=== PATIENT | male | born 1970 | race Caucasian/White ===

== ENCOUNTER 2016-12-13 19:37 | Inpatient (IN) | payer OTHER ==
[~2016-12-13] VITALS: Ht 185.4 cm; Wt 99.7 kg
[~2016-12-13 19:37] MED LIST: IBUP-103 PO; TRAM-10 PO
[2016-12-13] MEDS ORDERED: MULTI-VITAMIN INFUSION INJ 10 ML, THIAMINE HCL INJ 100 MG, FoLIC ACID INJ 1 MG in SODIU... IV ONE ×2 (20:30→23:00)
[2016-12-13] MEDS ORDERED: OPTIRAY 320 IV PRN (20:30)
[2016-12-13] MEDS ORDERED: PANTOprazole INJ 80 MG in DEXTROSE 5% 100ML 100 ML IV SCH (20:30)
--- NOTE | 2016-12-13 20:34 | EMERGENCY ROOM VISIT NOTE ---
History Report prepared by Maged: David Pastrana Under the Supervision of: Dr. Juan Alberto West M.D. First contact with patient: 20:10 Chief Complaint: ILLNESS Stated Complaint: INTERNAL BLEEDING,DIZZINESS,HEADACHE History of Present Illness The patient is a 46 year old male who presents to the Emergency Room with complaints of intermittent rectal bleeding beginning over 10 years ago. He notes he had a "bowel backup" in the and has been having bowel problems over the years since then. He indicates that the bleeding was worse today and notes bright red stool that fills the toilet. He notes he is a heavy drinker and consumed alcohol this morning. The patient admits to taking Percocet occasionally, 1 puff of marijuana per day, and Aleve for sciatica the last few months. He feels dizzy and warm, and reports having right groin pain especially in the morning. He also notes getting palpitations at times. He denies having any rash, and does not have a family history of bleeding disorders. Source of History: patient Onset: over 10 years ago Position: other (rectum) Quality: other (rectal bleeding) Timing: intermittent Associated Symptoms: No rash Note: The patient notes feeling dizzy, warm, and has right groin pain. He also notes occasional palpitations. Review of Systems See HPI for pertinent positives & negatives. A total of 10 systems reviewed and were otherwise negative. Past Medical & Surgical Medical Problems: (1) Anxiety State Nos (2) GI bleed (3) Hypertension Nos (4) Lumbago (5) Tobacco Use Disorder Family History No pertinent family history stated. Social History Smoking Status: Current Every Day Smoker Alcohol Use: occasionally Drug Use: marijuana Marital Status: single Housing Status: lives with family Occupation Status: employed Current/Historical Medications Scheduled PRN Ibuprofen Tab (Advil), 200 MG PO Q6 PRN for Pain Allergies Coded Allergies: Codeine (Unverified Allergy, Unknown, SOB, HOT FACE, HIVES, 09/01/16) Erythromycin (Unverified Adverse Reaction, Mild, STOMACH CRAMPS, 09/01/16) Physical Exam Vital Signs Date Time Temp Pulse Resp B/P Pulse Ox O2 Delivery O2 Flow Rate FiO2 12/13/16 21:54 76 18 145/104 98 Room Air 12/13/16 19:40 36.5 105 18 159/110 99 Room Air Physical Exam GENERAL: Patient is mildly intoxicated, anxious appearing and in no acute distress. HEENT: No acute trauma, normocephalic atraumatic, mucous membranes moist, no nasal congestion, no scleral icterus. Injected conjunctiva. NECK: No stridor, no adenopathy, no meningismus, trachea is midline. LUNGS: No dyspnea. Clear to auscultation and equal bilaterally. No wheeze, no rhonchi. HEART: Regular rate and rhythm. No murmurs, rubs, gallops appreciated. ABDOMEN: Soft; vague right suprapubic tenderness to palpation; bowel sounds positive, no masses appreciated, no peritonitis. BACK: No midline tenderness, no CVA tenderness EXTREMITIES: Normal motion all extremities, no cyanosis, no edema. NEUROLOGIC: Alert and oriented, no acute motor or sensory deficits, no focal weakness, cranial nerves grossly intact. SKIN: No rash, no jaundice, no diaphoresis. RECTAL: Bloody stool in rectal vault; normal testicles without swelling or tenderness; no mass appreciated. Medical Decision & Procedures ER Provider Diagnostic Interpretation: CT results are stated below per my interpretation and the radiologist's interpretation. CT SCAN OF THE ABDOMEN AND PELVIS WITH IV CONTRAST FINDINGS: Lung bases: The heart is normal in size and without pericardial effusion. The lung bases are clear. There is a small hiatal hernia. Liver: The contrast-enhanced liver is mildly enlarged, measuring over 18 cm in length. The liver demonstrates diffusely distended attenuation consistent with hepatic steatosis. Fatty sparing is seen adjacent to the gallbladder fossa. A linear calcification is noted in the right lobe of the liver adjacent the IVC. There is no intrahepatic biliary ductal dilatation. The hepatic veins and portal veins are patent. Gallbladder: Contracted. Spleen: Normal in size and attenuation. Pancreas: Unremarkable. Adrenal glands: Calcifications of the left adrenal gland suggest remote trauma/hemorrhage. A 2.0 cm fat density lesion arises from the right adrenal gland and is typical for a myelolipoma. Kidneys: The contrast enhanced kidneys are normal in size and without hydronephrosis. The kidneys enhance symmetrically. There is cortical irregularity identified in the right kidney, likely worsening scarring. No definite mass lesion is seen. There are bilateral renal cysts measuring up to 2.5 cm. Abdominal vasculature: The abdominal aorta is normal in course and caliber noting mild atherosclerotic calcification. Bowel: The small bowel and colon are normal in course and caliber. There is mild colonic diverticulosis without CT evidence of acute diverticulitis. Mild colonic fecal retention is observed. The appendix is well-visualized and normal. Peritoneum: There is no intraperitoneal free air or abdominal ascites. There is a small fat-containing umbilical hernia. Lymphadenopathy: There is a pathologically enlarged retroperitoneal lymph nodes seen in the retrocaval region on image #179. This measures 1.7 x 1.9 cm. Pelvic viscera: The bladder wall appears circumferentially thickened. The prostate and seminal vesicles are normal as visualized. Skeletal structures: No lytic or blastic lesions are seen. Sclerotic changes seen involving the sacroiliac joints. There are bilateral pars defects at L5. No anterolisthesis is seen at L5-S1. IMPRESSION: 1. The bladder wall appears circumferentially thickened. Correlate clinically and with urinalysis. 2. There is a pathologically enlarged retroperitoneal lymph node. This is of indeterminant significance, and although this could be on a reactive basis neoplasm is not excluded. Assessment of the scrotum is recommended as testicular neoplasm can metastasize to the site. 3. There is cortical irregularity of the right kidney without well-defined mass lesion. This likely represents cortical scarring. Given the concurrent finding of retroperitoneal lymphadenopathy urological assessment is recommended. 4. Hepatomegaly and hepatic steatosis. 5. Additional changes as above. Findings were discussed with Dr. eWst in the emergency department at the time of interpretation. Electronically signed by: Bruno Conde M.D. 12/13/2016 9:15 PM Dictated Date/Time: 12/13/2016 9:01 PM Laboratory Results 12/13/16 20:25 Red Blood Count 4.40, Mean Corpuscular Volume 90.5, Mean Corpuscular Hemoglobin 33.4, Mean Corpuscular Hemoglobin Concent 36.9, Mean Platelet Volume 8.6, Neutrophils (%) (Auto) 42.9, Lymphocytes (%) (Auto) 44.0, Monocytes (%) (Auto) 9.6, Eosinophils (%) (Auto) 2.7, Basophils (%) (Auto) 0.4, Neutrophils # (Auto) 1.92, Lymphocytes # (Auto) 1.97, Monocytes # (Auto) 0.43, Eosinophils # (Auto) 0.12, Basophils # (Auto) 0.02 12/14/16 00:34 12/13/16 20:25 Test 12/13/16 20:25 12/13/16 20:35 White Blood Count 4.48 K/uL (4.8-10.8) Red Blood Count 4.40 M/uL (4.7-6.1) Hemoglobin 14.7 g/dL (14.0-18.0) Hematocrit 39.8 % (42-52) Mean Corpuscular Volume 90.5 fL (80-100) Mean Corpuscular Hemoglobin 33.4 pg (25-34) Mean Corpuscular Hemoglobin Concent 36.9 g/dl (32-36) Platelet Count 238 K/uL (130-400) Mean Platelet Volume 8.6 fL (7.4-10.4) Neutrophils (%) (Auto) 42.9 % Lymphocytes (%) (Auto) 44.0 % Monocytes (%) (Auto) 9.6 % Eosinophils (%) (Auto) 2.7 % Basophils (%) (Auto) 0.4 % Neutrophils # (Auto) 1.92 K/uL (1.4-6.5) Lymphocytes # (Auto) 1.97 K/uL (1.2-3.4) Monocytes # (Auto) 0.43 K/uL (0.11-0.59) Eosinophils # (Auto) 0.12 K/uL (0-0.5) Basophils # (Auto) 0.02 K/uL (0-0.2) RDW Standard Deviation 42.8 fL (36.4-46.3) RDW Coefficient of Variation 12.9 % (11.5-14.5) Immature Granulocyte % (Auto) 0.4 % Immature Granulocyte # (Auto) 0.02 K/uL (0.00-0.02) Prothrombin Time 10.0 SECONDS (9.0-12.0) Prothromb Time International Ratio 0.9 (0.9-1.1) Activated Partial Thromboplast Time 26.6 SECONDS (21.0-31.0) Partial Thromboplastin Ratio 1.0 Urine Color YELLOW Urine Appearance CLEAR (CLEAR) Urine pH 5.0 (4.5-7.5) Urine Specific [place] 1.020 (1.000-1.030) Urine Protein 2+ (NEG) Urine Glucose (UA) NEG (NEG) Urine Ketones 1+ (NEG) Urine Occult Blood NEG (NEG) Urine Nitrite NEG (NEG) Urine Bilirubin NEG (NEG) Urine Urobilinogen NEG (NEG) Urine Leukocyte Esterase NEG (NEG) Urine WBC (Auto) 0 /hpf (0-5) Urine RBC (Auto) 0-4 /hpf (0-4) Urine Hyaline Casts (Auto) 0 /lpf (0-5) Urine Epithelial Cells (Auto) 0-5 /lpf (0-5) Urine Bacteria (Auto) NEG (NEG) Est Creatinine Clear Calc Drug Dose 117.1 ml/min Estimated GFR () 105.6 Estimated GFR (Non- 91.1 BUN/Creatinine Ratio 20.7 (10-20) Calcium Level 9.4 mg/dl (8.5-10.1) Total Bilirubin 0.3 mg/dl (0.2-1) Direct Bilirubin 0.1 mg/dl (0-0.2) Aspartate Amino Transf (AST/SGOT) 44 U/L (15-37) Alanine Aminotransferase (ALT/SGPT) 75 U/L (12-78) Alkaline Phosphatase 64 U/L (45-117) Total Protein 7.2 gm/dl (6.4-8.2) Albumin 3.9 gm/dl (3.4-5.0) Lipase 146 U/L (73-393) Bedside Hemoglobin 14.6 g/dl (14.0-18.0) Bedside Hematocrit 43 % (42-52) Bedside Sodium 142 mEq/L (135-144) Bedside Potassium 3.6 mEq/L (3.3-5.0) Bedside Chloride 103 mEq/L (101-112) Bedside Total CO2 26 mEq/l (24-31) Anion Gap 18.0 mmol/L (16-25) Bedside Blood Urea Nitrogen 23 mg/dl (7-18) Bedside Creatinine 1.1 mg/dl (0.6-1.3) Bedside Glucose (other) 92 mg/dl (70-99) Bedside Ionized Calcium (Yissel) 1.15 mmol/l (1.12-1.32) Laboratory results as reviewed by me. Medications Administered Medications (Trade) Dose Ordered Sig/[place] Route Start Time Stop Time Status Last Admin Dose Admin Multivitamins 10 ml/Thiamine HCl 100 mg/Folic Acid 1 mg/Sodium Chloride 1,011.2 ml @ 500 mls/ hr Q2H2M ONCE IV 12/13/16 20:30 12/13/16 22:31 DC 12/13/16 21:04 500 MLS/HR Pantoprazole Sodium/Dextrose (Protonix Inj/D5 100ml) 120 ml @ 400 mls/hr NOW IV 12/13/16 20:30 12/13/16 22:50 DC 12/13/16 21:05 400 MLS/HR Lorazepam (Ativan Inj) 1 mg NOW STAT IV 12/13/16 21:34 12/13/16 21:35 DC 12/13/16 21:52 1 MG ED Course 2016: The patient was evaluated in room A2. A complete history and physical exam was performed. 2112: Radiology notes abnormal lymph nodes in right lower abdomen. 2122: I offered something for anxiety and he declined. 2029: Ordered Pantoprazole Sodium 80 mg/Dextrose 120 ml @ 400 mls/hr IV, and Multivitamins 10 ml/Thiamine HCl 100 mg/Folic Acid 1 mg/Sodium Chloride 1,011.2 ml @ 500 mls/hr IV. 3: The patient would like something for anxiety. 2133: Ordered Lorazepam 1 mg IV. 213: Discussed the patient's case with Dr. Ruslan Demarco. The patient will be evaluated for further treatment and disposition. 5: Upon reevaluation, the patient is hemodynamically stable. Discussed results and treatment plan with the patient. He verbalized understanding and agreement with the treatment plan. The patient will be evaluated for further management. Medical Decision Differential: Diverticulitis, AVM, Coagulopathy, Colitis, Malignancy, Upper GI bleed, Fissure, Hemorrhoids, amongst other pathologies entertained. 46 yr old male arrives for evaluation of rectal bleeding. History of bleeding for quite some time though never so much and filling toilet. Clearly bloody heme positive scant stool on examination. Unable to determine if fissure, deep hemorrhoid of blood from further in. There is abnormal lymph node on CT concerning for cancer. Brief examination of testicle is relatively benign without any significant pain nor masses appreciate, though he does have TTP over inguinal canal. HgB OK, vitals normal and patient feeling better after some ativan. He is heavy alcoholic who is at high risk as outpatient of not making follow up appointments as well as having rapid decline, thus I feel bringing in reasonable for further work-up and evaluation. Stable throughout ED stay. Consults Time Called: 2129 Consulting Physician: Dr. Ruslan Demarco Returned Call: [phone] Discussed the patient's case with Dr. Ruslan Demarco. The patient will be evaluated for further treatment and disposition. Impression Primary Impression: Acute GI bleeding Additional Impressions: Alcoholic retroperitonial lymph node Scribe Attestation The scribe's documentation has been prepared under my direction and personally reviewed by me in its entirety. I confirm that the note above accurately reflects all work, treatment, procedures, and medical decision making performed by me. Departure Information Referrals No Doctor, Assigned (PCP) Patient Instructions My Miles Demarco [facility] Problem Qualifiers
[2016-12-13 20:47] LABS: BASO % 0.4 %; BASO ABS # 0.02 K/uL (0-0.2); COMPLETE YES; EOS % 2.7 %; HEMATOCRIT 39.8 % (42-52); IG% 0.4 %; LYMPH ABS # 1.97 K/uL (1.2-3.4); MEAN CELL VOLUME 90.5 fL (80-100); MEAN CORPUSCULAR HEMOGLOBIN 33.4 pg (25-34); MEAN CORPUSCULAR HGB CONC 36.9 g/dl (32-36); MEAN PLATELET VOLUME 8.6 fL (7.4-10.4); MONO % 9.6 %; NEUT % 42.9 %; PLATELET COUNT 238 K/uL (130-400); WHITE BLOOD COUNT 4.48 K/uL (4.8-10.8)
[2016-12-13 20:51] LABS: URINE APPEARANCE CLEAR (CLEAR); URINE BILIRUBIN NEG (NEG); URINE COLOR YELLOW; URINE EPITHELIAL CELL AUTO 0-5 /lpf (0-5); URINE NITRITE NEG (NEG); UROBILINOGEN NEG (NEG); ZZUR CULT IF INDIC CLEAN CATCH NO
[2016-12-13 20:53] LABS: ISTAT CREATININE 1.1 mg/dl (0.6-1.3); ISTAT HEMOGLOBIN 14.6 g/dl (14.0-18.0); ISTAT IONIZED CALCIUM 1.15 mmol/l (1.12-1.32)
[2016-12-13 20:57] LABS: INR 0.9 (0.9-1.1); MANUAL MICROSCOPIC REQUIRED? NO; REVIEW REQ? NO
--- NOTE | 2016-12-13 21:17 | DIAGNOSTIC IMAGING REPORT ---
CT SCAN OF THE ABDOMEN AND PELVIS WITH IV CONTRAST CLINICAL HISTORY: Right lower quadrant abdominal pain. GI bleeding. Alcohol abuse. COMPARISON STUDY: No priors. TECHNIQUE: Following the IV administration of 119 cc of Optiray 320, CT scan of the abdomen and pelvis is performed from the lung bases to the proximal femora. Images are reviewed in the axial, sagittal, and coronal planes. IV contrast was administered without complication. Automated dose control exposure was utilized. CT DOSE: 569.23 mGy.cm FINDINGS: Lung bases: The heart is normal in size and without pericardial effusion. The lung bases are clear. There is a small hiatal hernia. Liver: The contrast-enhanced liver is mildly enlarged, measuring over 18 cm in length. The liver demonstrates diffusely distended attenuation consistent with hepatic steatosis. Fatty sparing is seen adjacent to the gallbladder fossa. A linear calcification is noted in the right lobe of the liver adjacent the IVC. There is no intrahepatic biliary ductal dilatation. The hepatic veins and portal veins are patent. Gallbladder: Contracted. Spleen: Normal in size and attenuation. Pancreas: Unremarkable. Adrenal glands: Calcifications of the left adrenal gland suggest remote trauma/hemorrhage. A 2.0 cm fat density lesion arises from the right adrenal gland and is typical for a myelolipoma. Kidneys: The contrast enhanced kidneys are normal in size and without hydronephrosis. The kidneys enhance symmetrically. There is cortical irregularity identified in the right kidney, likely worsening scarring. No definite mass lesion is seen. There are bilateral renal cysts measuring up to 2.5 cm. Abdominal vasculature: The abdominal aorta is normal in course and caliber noting mild atherosclerotic calcification. Bowel: The small bowel and colon are normal in course and caliber. There is mild colonic diverticulosis without CT evidence of acute diverticulitis. Mild colonic fecal retention is observed. The appendix is well-visualized and normal. Peritoneum: There is no intraperitoneal free air or abdominal ascites. There is a small fat-containing umbilical hernia. Lymphadenopathy: There is a pathologically enlarged retroperitoneal lymph nodes seen in the retrocaval region on image #179. This measures 1.7 x 1.9 cm. Pelvic viscera: The bladder wall appears circumferentially thickened. The prostate and seminal vesicles are normal as visualized. Skeletal structures: No lytic or blastic lesions are seen. Sclerotic changes seen involving the sacroiliac joints. There are bilateral pars defects at L5. No anterolisthesis is seen at L5-S1. IMPRESSION: 1. The bladder wall appears circumferentially thickened. Correlate clinically and with urinalysis. 2. There is a pathologically enlarged retroperitoneal lymph node. This is of indeterminant significance, and although this could be on a reactive basis neoplasm is not excluded. Assessment of the scrotum is recommended as testicular neoplasm can metastasize to the site. 3. There is cortical irregularity of the right kidney without well-defined mass lesion. This likely represents cortical scarring. Given the concurrent finding of retroperitoneal lymphadenopathy urological assessment is recommended. 4. Hepatomegaly and hepatic steatosis. 5. Additional changes as above. Findings were discussed with Dr. West in the emergency department at the time of interpretation. Electronically signed by: Bruno Conde M.D. 12/13/2016 9:15 PM Dictated Date/Time: 12/13/2016 9:01 PM
[2016-12-13 21:18] LABS: BUN/CREATININE RATIO 20.7 (10-20); CALCIUM 9.4 mg/dl (8.5-10.1); POTASSIUM 3.7 mmol/L (3.5-5.1)
[2016-12-13] MEDS ORDERED: LORAZEPAM 2 MG/ML 1 ML VIAL IV STA (21:34)
[2016-12-13] MEDS ORDERED: ONDANSETRON INJ 2 MG/ML 2 ML VIAL IV PRN (22:45)
[2016-12-13] MEDS ORDERED: ZOLPIDEM TARTRATE 5 MG TAB PO PRN (22:45)
[2016-12-13] MEDS ORDERED: ACETAMINOPHEN 325 MG TAB PO PRN (22:45)
--- NOTE | 2016-12-13 22:45 | History and Physical ---
History & Physical Date & Time of Service: Dec 13, 2016 at 22:40 Chief Complaint: Internal Bleeding,Dizziness,Headache Primary Care Physician: No Doctor, Assigned History of Present Illness Source: patient 46 y/o M Hx ETOH abuse and intermittent rectal bleeding for several yrs. Presents due to worsening BRBPR - now filling the toilet. Denies nausea, vomiting or significant abdominal pain. States that these symptoms have been present since age 22 bug has not been previously evaluated. He states that the bleeding is mostly associated with straining but can come about as sprays of blood without straining or a BM as well. The pt states that he has been emotionally stressed recently and his alcohol intake has increased as a result. He drinks approximately 3 40oz 8% Lagers daily. He denies a history of severe withdrawal, DTs or seizures. CT abdomen is concerning for a pathological retroperitoneal lymph node, however this would be more consistent with testicular CA than colon CA. Past Medical/Surgical History ETOH abuse Daily marijuana use Employed in [employer] and [employer] Nonsmoker Family History Mother with history of thyroid CA Father with History of heart disease Social History Long-term excessive alcohol consumption - 3 malt liquors daily Smokes Occasional us eof Percocet without prescription Daily marijuana use Smoking Status: Never Smoker (Smokes one puff Marijuana daily - no cigarettes) Drug Use: marijuana Marital Status: single Occupational Status: employed Allergies Coded Allergies: Codeine (Unverified Allergy, Unknown, SOB, HOT FACE, HIVES, 09/01/16) Erythromycin (Unverified Adverse Reaction, Mild, STOMACH CRAMPS, 09/01/16) Home Medications Scheduled PRN Ibuprofen Tab (Advil), 200 MG PO Q6 PRN for Pain Review of Systems Constitutional: No chills, No fever, No sweats Eyes: No worsening of vision ENT: No hearing loss, No nasal symptoms, No unusual epistaxis Respiratory: No cough, No sputum, No wheezing Cardiovascular: No PND, No chest pain, No orthopnea Abdomen: + GI bleeding, No nausea, No pain, No vomiting Musculoskeletal: No joint pain, No muscle pain Genitourinary - Male: No dysuria, No hematuria, No urinary frequency Neurologic: No memory loss, No paralysis, No weakness Psychiatric: No depression symptoms Endocrine: No fatigue Hematologic / Lymphatic: + abnormal bleeding/bruising Integumentary: No rash Allergic / Immunologic: No environmental allergies Physical Exam Vital Signs Date Time Temp Pulse Resp B/P Pulse Ox O2 Delivery O2 Flow Rate FiO2 12/13/16 21:54 76 18 145/104 98 Room Air 12/13/16 19:40 36.5 105 18 159/110 99 Room Air General Appearance: WD/WN, no apparent distress Head: normocephalic, atraumatic Eyes: normal inspection, PERRL, EOMI ENT: normal ENT inspection, pharynx normal Neck: supple, no JVD Respiratory/Chest: chest non-tender, lungs clear, normal breath sounds, no respiratory distress, no accessory muscle use Cardiovascular: regular rate, rhythm, no edema, no gallop, no JVD, no murmur, normal peripheral pulses Abdomen/GI: normal bowel sounds, non tender, soft Genitourinary - Male: + pertinent finding (No overt testicular lesions - mild tenderness of R groin) Back: normal inspection, no CVA tenderness Extremities/Musculoskelatal: normal inspection, no calf tenderness, normal capillary refill, no pedal edema, normal range of motion Neurologic/Psych: research mechanic II-XII nml as tested, no motor/sensory deficits, alert, normal mood/affect, normal reflexes, oriented x 3 Skin: normal color, warm/dry, no rash Diagnostics Laboratory Results Results Past 24 Hours Test 12/13/16 20:25 12/13/16 20:35 Range/Units White Blood Count 4.48 4.8-10.8 K/uL Red Blood Count 4.40 4.7-6.1 M/uL Hemoglobin 14.7 14.0-18.0 g/dL Hematocrit 39.8 42-52 % Mean Corpuscular Volume 90.5 80-100 fL Mean Corpuscular Hemoglobin 33.4 25-34 pg Mean Corpuscular Hemoglobin Concent 36.9 32-36 g/dl Platelet Count 238 130-400 K/uL Mean Platelet Volume 8.6 7.4-10.4 fL Neutrophils (%) (Auto) 42.9 % Lymphocytes (%) (Auto) 44.0 % Monocytes (%) (Auto) 9.6 % Eosinophils (%) (Auto) 2.7 % Basophils (%) (Auto) 0.4 % Neutrophils # (Auto) 1.92 1.4-6.5 K/uL Lymphocytes # (Auto) 1.97 1.2-3.4 K/uL Monocytes # (Auto) 0.43 0.11-0.59 K/uL Eosinophils # (Auto) 0.12 0-0.5 K/uL Basophils # (Auto) 0.02 0-0.2 K/uL RDW Standard Deviation 42.8 36.4-46.3 fL RDW Coefficient of Variation 12.9 11.5-14.5 % Immature Granulocyte % (Auto) 0.4 % Immature Granulocyte # (Auto) 0.02 0.00-0.02 K/uL Prothrombin Time 10.0 9.0-12.0 SECONDS Prothromb Time International Ratio 0.9 0.9-1.1 Activated Partial Thromboplast Time 26.6 21.0-31.0 SECONDS Partial Thromboplastin Ratio 1.0 Urine Color YELLOW Urine Appearance CLEAR CLEAR Urine pH 5.0 4.5-7.5 Urine Specific [place] 1.020 1.000-1.030 Urine Protein 2+ NEG Urine Glucose (UA) NEG NEG Urine Ketones 1+ NEG Urine Occult Blood NEG NEG Urine Nitrite NEG NEG Urine Bilirubin NEG NEG Urine Urobilinogen NEG NEG Urine Leukocyte Esterase NEG NEG Urine WBC (Auto) 0 0-5 /hpf Urine RBC (Auto) 0-4 0-4 /hpf Urine Hyaline Casts (Auto) 0 0-5 /lpf Urine Epithelial Cells (Auto) 0-5 0-5 /lpf Urine Bacteria (Auto) NEG NEG Sodium Level 143 136-145 mmol/L Potassium Level 3.7 3.5-5.1 mmol/L Chloride Level 104 98-107 mmol/L Carbon Dioxide Level 27 21-32 mmol/L Anion Gap 12.0 18.0 16-25 mmol/L Blood Urea Nitrogen 21 7-18 mg/dl Creatinine 1.00 0.60-1.40 mg/dl Est Creatinine Clear Calc Drug Dose 117.1 ml/min Estimated GFR () 105.6 Estimated GFR (Non- 91.1 BUN/Creatinine Ratio 20.7 10-20 Random Glucose 95 70-99 mg/dl Calcium Level 9.4 8.5-10.1 mg/dl Total Bilirubin 0.3 0.2-1 mg/dl Direct Bilirubin 0.1 0-0.2 mg/dl Aspartate Amino Transf (AST/SGOT) 44 15-37 U/L Alanine Aminotransferase (ALT/SGPT) 75 12-78 U/L Alkaline Phosphatase 64 45-117 U/L Total Protein 7.2 6.4-8.2 gm/dl Albumin 3.9 3.4-5.0 gm/dl Lipase 146 73-393 U/L Bedside Hemoglobin 14.6 14.0-18.0 g/dl Bedside Hematocrit 43 42-52 % Bedside Sodium 142 135-144 mEq/L Bedside Potassium 3.6 3.3-5.0 mEq/L Bedside Chloride 103 101-112 mEq/L Bedside Total CO2 26 24-31 mEq/l Bedside Blood Urea Nitrogen 23 7-18 mg/dl Bedside Creatinine 1.1 0.6-1.3 mg/dl Bedside Glucose (other) 92 70-99 mg/dl Bedside Ionized Calcium (Yissel) 1.15 1.12-1.32 mmol/l Diagnostic Radiology CT abdomen 1. The bladder wall appears circumferentially thickened. Correlate clinically and with urinalysis. 2. There is a pathologically enlarged retroperitoneal lymph node. This is of indeterminant significance, and although this could be on a reactive basis neoplasm is not excluded. Assessment of the scrotum is recommended as testicular neoplasm can metastasize to the site. 3. There is cortical irregularity of the right kidney without well-defined mass lesion. This likely represents cortical scarring. Given the concurrent finding Impression Assessment and Plan 46 y/o M Hx ETOH abuse and intermittent rectal bleeding for several yrs. Presents due to worsening BRBPR - now filling the toilet. States that these symptoms have been present since age 22 bug has not been previously evaluated. He states that the bleeding is mostly associated with straining but can come about as sprays of blood without straining or a BM as well. The pt states that he has been emotionally stressed recently and his alcohol intake has increased as a result. He drinks approximately 3 40oz 8% Lagers daily. He denies a history of severe withdrawal, DTs or seizures. CT reveals a pathologic retroperitoneal LN which would be consistent with testicular CA. 1) Rectal bleeding - long-term issue so more likely due to chronic inflammatory process - we will monitor Hb, keep NPO and consult GI - will likely need a colonoscopy 2) ETOH abuse - placed on scheduled Serax, PRN Ativan, daily banana bag - may want some help prior to D/C 3) Lymph node - will obtain testicular US - may need to follow-up with HO as outpt if no etiology is discerned Full code - SCDs only Total time for this admit including review of records, imaging, meds - discussion w/Pt and ER MD 36 min Level of Care Med/Surg Resuscitation Status FULL RESUSCITATION VTE Prophylaxis Given or contraindicated: SCD's, Contraindicated
[2016-12-13] MEDS ORDERED: LORAZEPAM 2 MG/ML 1 ML VIAL IV PRN (23:00)
[2016-12-13] MEDS ORDERED: NICOTINE 21 MG/24 HR TDSY TD PRN (23:00)
[2016-12-14] VITALS (8 sets, daily range): BP systolic 133–153; BP diastolic 88–114; PULSE 58–85; TEMP 36.1–36.6; O2SAT 94–100; Ht 185.4 cm; Wt 99.7 kg
[2016-12-14] MEDS ORDERED: D5NSS + 20MEQ KCL 1,000 ML IV SCH (02:45)
[2016-12-14] MEDS ORDERED: [UNRECOGNIZED DRUG - OTHER] IV SCH ×5 (03:00)
[2016-12-14] MEDS ORDERED: FOLIC ACID IV SCH ×5 (03:00)
[2016-12-14] MEDS ORDERED: MULTI VITAMIN INFUSION IV SCH ×5 (03:00)
[2016-12-14] MEDS ORDERED: THIAMINE HCL IV SCH ×5 (03:00)
[2016-12-14] MEDS: FOLIC ACID IV SCH ×15 (03:25→19:45)
[2016-12-14] MEDS: THIAMINE HCL IV SCH ×15 (03:25→19:45)
[2016-12-14] MEDS: MULTI VITAMIN INFUSION IV SCH ×15 (03:25→19:45)
[2016-12-14] MEDS: [UNRECOGNIZED DRUG - OTHER] IV SCH ×15 (03:25→19:45)
[2016-12-14] MEDS: LORAZEPAM INJ 1 MG in SYRINGE 0.5 ML IV PRN ×2 (03:43→07:49)
[2016-12-14] MEDS ORDERED: MULTI-VITAMIN INFUSION INJ 10 ML, THIAMINE HCL INJ 100 MG, FoLIC ACID INJ 1 MG in SODIU... IV SCH (09:00)
[2016-12-14] MEDS ORDERED: OXAZEPAM 10MG CAP PO SCH (09:00)
[2016-12-14] MEDS: PANTOprazole INJ 40 MG in SYRINGE 0 ML IV SCH ×2 (09:04→21:03)
--- NOTE | 2016-12-14 10:02 | Progress Note ---
Progress Note pt seen and examed, d/w PA about alvarado points of dignosis and care plan, agreed current management, for details please referral to PA's note Hx ETOH abuse , continue banana bag, CIWA protocol, using Ativan per protocol stop Serax worsening BRBPR: He reported has been for years recently getting worse, will rule out H&H, and by mouth, IV fluid, Protonix IV, follow-up GI input Lymphadenopathy with Lymph node nodularity in CAT scan , will obtain testicular US , has request consult I offered to talk to patient's about conditions and care plan, patient feel not necessary now Discussed with nurse Increase IV fluid to 120 ml per hour
[2016-12-14] MEDS: LORAZEPAM 1 MG TAB PO PRN ×2 (10:56→17:52)
--- NOTE | 2016-12-14 11:39 | DIAGNOSTIC IMAGING REPORT ---
SCROTAL ULTRASOUND CLINICAL HISTORY: Retroperitoneal lymph node. Evaluate for carcinoma. COMPARISON STUDY: None. TECHNIQUE: Grayscale and color and duplex Doppler sonography of the scrotum was performed. FINDINGS: The right testis measures 4.3 x 2.2 x 3 cm and the left measures 4.3 x 2.2 x 3 cm. No testicular mass is present. A few echogenic foci within the testes represent microliths. Color flow is identified within each testis. There were small bilateral varicoceles. Small bilateral epididymal head cysts were noted as well. IMPRESSION: No testicular mass identified. Electronically signed by: Dwight Morales M.D. 12/14/2016 11:37 AM Dictated Date/Time: 12/14/2016 11:34 AM
--- NOTE | 2016-12-14 13:20 | Hospitalist Progress Note ---
Hospitalist Progress Note Date of Service Dec 14, 2016. Subjective Pt evaluation today including: conversation w/ patient, physical exam, chart review, lab review, review of studies Pain: None PO Intake: NPO Voiding: no voiding problems The patient was seen and examined this morning. Pt reports "anxiety from being in the hospital...really wants a beer...is nervous about maybe having cancer". He denies rectal bleeding or bloody bowel movement overnight. He denies abd pain , nausea, vomiting. He reports feeling "jittery" but denies sweats or tremors. Pt just returned from testicular ultrasound. Upon further investigation the pt has had intermitted BRBPR for 11 years. He reports bowel disturbance such as constipation and bloating with dairy products. He denies that certain foods trigger bowel issues. He has been drinking alcohol since he was 12 years old. Has a significant history of drug use including cocaine addiction x 20 years, narcotics, heroin, and currently smokes marijuana twice on a daily basis. Pt reports marijuana use is for chronic pain and then in the evening for anxiety. Constitutional: No chills, No fever, No sweats Eyes: No diplopia ENT: No nasal symptoms, No sore throat, No tinnitus Respiratory: No cough, No shortness of breath, No wheezing Cardiovascular: No chest pain, No palpitations Abdomen: + GI bleeding, No constipation, No diarrhea, No nausea, No pain, No vomiting Musculoskeletal: No joint pain Male : No dysuria, No hematuria Neurologic: No numbness/tingling, No weakness Endo: No fatigue Skin: No itch, No rash Objective Vital Signs Date Time Temp Pulse Resp B/P Pulse Ox O2 Delivery O2 Flow Rate FiO2 12/14/16 07:54 Room Air 12/14/16 07:39 36.4 75 16 134/88 98 Room Air 12/14/16 01:30 Room Air 12/14/16 01:30 36.4 71 16 149/111 99 Room Air 12/14/16 01:30 Room Air 12/14/16 01:08 62 18 148/102 100 Room Air 12/13/16 21:54 76 18 145/104 98 Room Air 12/13/16 19:40 36.5 105 18 159/110 99 Room Air Physical Exam General Appearance: WD/WN, + mild distress, + pertinent finding (anxious) Eyes: PERRL, EOMI ENT: hearing grossly normal, pharynx normal Neck: no JVD Respiratory/Chest: lungs clear, normal breath sounds, no respiratory distress, no accessory muscle use Cardiovascular: regular rate, rhythm, no murmur, + tachycardia (HR in 90s), + normal peripheral pulses Abdomen: normal bowel sounds, non tender, soft Extremities: non-tender, no pedal edema, no calf tenderness Neurologic/Psychiatric: alert, oriented x 3, + depressed affect (+anxious. No tremors) Skin: normal color, warm/dry Laboratory Results Last 24 Hours Test 12/13/16 20:25 12/13/16 20:35 12/14/16 00:34 12/14/16 06:01 White Blood Count 4.48 K/uL Red Blood Count 4.40 M/uL Hemoglobin 14.7 g/dL 13.6 g/dL 13.1 g/dL Hematocrit 39.8 % Mean Corpuscular Volume 90.5 fL Mean Corpuscular Hemoglobin 33.4 pg Mean Corpuscular Hemoglobin Concent 36.9 g/dl Platelet Count 238 K/uL Mean Platelet Volume 8.6 fL Neutrophils (%) (Auto) 42.9 % Lymphocytes (%) (Auto) 44.0 % Monocytes (%) (Auto) 9.6 % Eosinophils (%) (Auto) 2.7 % Basophils (%) (Auto) 0.4 % Neutrophils # (Auto) 1.92 K/uL Lymphocytes # (Auto) 1.97 K/uL Monocytes # (Auto) 0.43 K/uL Eosinophils # (Auto) 0.12 K/uL Basophils # (Auto) 0.02 K/uL RDW Standard Deviation 42.8 fL RDW Coefficient of Variation 12.9 % Immature Granulocyte % (Auto) 0.4 % Immature Granulocyte # (Auto) 0.02 K/uL Prothrombin Time 10.0 SECONDS Prothromb Time International Ratio 0.9 Activated Partial Thromboplast Time 26.6 SECONDS Partial Thromboplastin Ratio 1.0 Urine Color YELLOW Urine Appearance CLEAR Urine pH 5.0 Urine Specific [place] 1.020 Urine Protein 2+ Urine Glucose (UA) NEG Urine Ketones 1+ Urine Occult Blood NEG Urine Nitrite NEG Urine Bilirubin NEG Urine Urobilinogen NEG Urine Leukocyte Esterase NEG Urine WBC (Auto) 0 /hpf Urine RBC (Auto) 0-4 /hpf Urine Hyaline Casts (Auto) 0 /lpf Urine Epithelial Cells (Auto) 0-5 /lpf Urine Bacteria (Auto) NEG Sodium Level 143 mmol/L Potassium Level 3.7 mmol/L Chloride Level 104 mmol/L Carbon Dioxide Level 27 mmol/L Anion Gap 12.0 mmol/L 18.0 mmol/L Blood Urea Nitrogen 21 mg/dl Creatinine 1.00 mg/dl Est Creatinine Clear Calc Drug Dose 117.1 ml/min Estimated GFR () 105.6 Estimated GFR (Non- 91.1 BUN/Creatinine Ratio 20.7 Random Glucose 95 mg/dl Calcium Level 9.4 mg/dl Total Bilirubin 0.3 mg/dl Direct Bilirubin 0.1 mg/dl Aspartate Amino Transf (AST/SGOT) 44 U/L Alanine Aminotransferase (ALT/SGPT) 75 U/L Alkaline Phosphatase 64 U/L Total Protein 7.2 gm/dl Albumin 3.9 gm/dl Lipase 146 U/L Bedside Hemoglobin 14.6 g/dl Bedside Hematocrit 43 % Bedside Sodium 142 mEq/L Bedside Potassium 3.6 mEq/L Bedside Chloride 103 mEq/L Bedside Total CO2 26 mEq/l Bedside Blood Urea Nitrogen 23 mg/dl Bedside Creatinine 1.1 mg/dl Bedside Glucose (other) 92 mg/dl Bedside Ionized Calcium (Yissel) 1.15 mmol/l Assessment and Plan 46 y/o M Hx ETOH abuse and intermittent rectal bleeding for several yrs. Presents due to worsening BRBPR The pt states that he has been emotionally stressed recently and his alcohol intake has increased as a result. He drinks approximately 3 40oz 8% Lagers daily. He denies a history of severe withdrawal, DTs or seizures. CT reveals a pathologic retroperitoneal LN which would be consistent with testicular CA. Rectal bleeding - long-term issue so more likely due to chronic inflammatory process, ongoing for at least past 11 years. - Hgb remains stable ~13.7 down from 14.1, pt is also receiving banana bag so can partially be dilutional - pt denies any bloody bowel movements since admission - H&H q6H for today, if ok on next check will reduce # of blood draws to Q12H - GI consulted for possible colonoscopy- keep NPO after 2400 - VSS ETOH abuse Previous drug abuse - Monitor for signs of withdrawal - Librium 50 mg BID for now, PRN Ativan - pt initially refused serax. - daily banana bag - Will ask CM to discuss rehab/support groups prior to dc. - Start MVI, thiamine, B12 tomorrow - Hepatomegaly and hyposteatosis CT report: Liver: The contrast-enhanced liver is mildly enlarged, measuring over 18 cm in length. The liver demonstrates diffusely distended attenuation consistent with hepatic steatosis. Fatty sparing is seen adjacent to the gallbladder fossa. A linear calcification is noted in the right lobe of the liver adjacent the IVC. There is no intrahepatic biliary ductal dilatation. The hepatic veins and portal veins are patent. Lymph node - will obtain testicular US - ordered this am IMPRESSION: No testicular mass identified. - Urology consulted, appreciate recommendations Anxiety, ? bipolar disorder - Most exacerbated in social setting with large groups or crowds - Has tried multiple SSRIs in the past including: prozac, paxil, zoloft. Also welbutrin and buspar. Pt has never felt mood improvement on these medications and SSRIs have specifically caused sexual dysfunction. - Pt likely has a component of bipolar disorder as he reports low depressed mood with easily irritability/anger in situations that others wouldn't over react toward. Because of his drug history and his report that he also hasn't responded to typical SSRIs, would make me consider bipolar as a more reasonable diagnosis. Pt would likely benefit from a mood stabilizer, however will defer to outpatient provider. Will ask the pt so seek outpatient psychiatric help. He does not wish to see inpatient psych at this time. 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
[2016-12-14] MEDS: CHLORDIAZEPOXIDE 25 MG CAP PO SCH ×2 (13:34→21:03)
[2016-12-14] MEDS ORDERED: LAVAGE SOLUTION 4000ML PO SCH (19:00)
[2016-12-15] VITALS (9 sets, daily range): BP systolic 136–175; BP diastolic 85–113; PULSE 64–135; TEMP 36.2–36.5; O2SAT 95–99
[2016-12-15] MEDS: THIAMINE HCL IV SCH ×10 (03:20→14:09)
[2016-12-15] MEDS: [UNRECOGNIZED DRUG - OTHER] IV SCH ×10 (03:20→14:09)
[2016-12-15] MEDS: MULTI VITAMIN INFUSION IV SCH ×10 (03:20→14:09)
[2016-12-15] MEDS: FOLIC ACID IV SCH ×10 (03:20→14:09)
[2016-12-15 06:28] LABS: BASO % 0.5 %; BASO ABS # 0.02 K/uL (0-0.2); COMPLETE YES; EOS % 3.6 %; IG% 0.2 %; LYMPH % 29.6 %; LYMPH ABS # 1.23 K/uL (1.2-3.4); MEAN CELL VOLUME 90.7 fL (80-100); MEAN CORPUSCULAR HEMOGLOBIN 32.1 pg (25-34); MEAN CORPUSCULAR HGB CONC 35.4 g/dl (32-36); MEAN PLATELET VOLUME 8.7 fL (7.4-10.4); NEUT % 54.1 %; PLATELET COUNT 189 K/uL (130-400); RED BLOOD COUNT 4.08 M/uL (4.7-6.1); WHITE BLOOD COUNT 4.16 K/uL (4.8-10.8)
[2016-12-15] MEDS: LORAZEPAM 1 MG TAB PO PRN ×2 (06:30→09:11)
[2016-12-15 08:00] LABS: CALCIUM 8.5 mg/dl (8.5-10.1); CREATININE 0.9 mg/dl (0.60-1.40); MAGNESIUM 1.8 mg/dl (1.8-2.4); POTASSIUM 3.8 mmol/L (3.5-5.1)
[2016-12-15] MEDS: CHLORDIAZEPOXIDE 25 MG CAP PO SCH (08:54)
[2016-12-15] MEDS: PANTOprazole INJ 40 MG in SYRINGE 0 ML IV SCH (08:54)
[2016-12-15] MEDS ORDERED: MULTIVITAMIN TAB PO SCH (09:00)
[2016-12-15] MEDS ORDERED: THIAMINE HCL 50 MG TAB PO SCH (09:00)
--- NOTE | 2016-12-15 09:37 | Progress Note ---
Progress Note pt seen and examed, d/w PA about alvarado points of dignosis and care plan, agreed current management, for details please referral to PA's note Continue treatment for possible alcohol withdrawal because of heavy alcohol intake and Hx ETOH abuse Planning to do colonoscopy today is in the prep because of possible lower GI bleeding with worsening BRBPR , GI on the case testicular US has No testicular mass identified. Anxiety, possible mild bipolar disorder Right kidney lesion, I explained to him, no mass, however need to follow-up with the PCP or , I recommended to follow-up with urologist because they are on the case already
[2016-12-15] MEDS ORDERED: LORAZEPAM 0.5 MG TAB PO STA (11:09)
--- NOTE | 2016-12-15 11:25 | Hospitalist Progress Note ---
Hospitalist Progress Note Date of Service Dec 15, 2016. Subjective Pt evaluation today including: conversation w/ patient, conversation w/ family , physical exam, chart review, lab review, review of studies, review of inpatient medication list Pain: None PO Intake: NPO for colonoscopy Voiding: no voiding problems The patient was seen and examined this morning. Pt reports finishing bowel prep this morning- fell asleep overnight and was unable to finish it then. He reports bm's are watery, yellow this morning. He is reporting anxiety this morning, frontal headache, and some mild tremors. Nursing reports he is fixating on the possibility of having colon cancer and is working himself up. He denies abd pain, bloody bowel movements, nausea, vomiting. All Other Systems: Reviewed and Negative ([place] than as listed above. ) Objective Vital Signs Date Time Temp Pulse Resp B/P Pulse Ox O2 Delivery O2 Flow Rate FiO2 12/15/16 09:08 36.3 70 20 147/100 98 Room Air 12/15/16 07:42 36.4 70 18 146/109 98 Room Air 12/15/16 07:40 Room Air 12/15/16 06:29 159/109 12/15/16 06:22 36.2 72 18 175/113 98 Room Air 12/15/16 03:15 36.3 73 16 136/85 97 Room Air 12/15/16 00:10 Room Air 12/14/16 23:34 36.2 58 12 135/90 94 Room Air 12/14/16 17:30 36.4 71 20 147/99 12/14/16 15:54 36.1 85 16 142/102 97 Room Air 12/14/16 15:15 Room Air 12/14/16 13:30 36.6 75 20 133/89 98 Room Air Physical Exam Notes: Vital Signs - as noted below Laboratory Data - as noted below Physical Exam: General - NAD, anxious, not diaphoretic Eyes - No icterus, gaze conjugate ENT - Mucosa moist, no lesions or candidiasis Neck - Supple, No JVD Lungs - No bronchospasm, rales, or rhonchi. Heart - Regular, rate controlled Abdomen - Soft, NT, ND, BS present x 4 quadrants Extremities - No edema, pedal pulses intact Neuro - A&OX3 Laboratory Results Last 24 Hours Test 12/14/16 12:13 12/15/16 06:10 Hemoglobin 13.4 g/dL 13.1 g/dL White Blood Count 4.16 K/uL Red Blood Count 4.08 M/uL Hematocrit 37.0 % Mean Corpuscular Volume 90.7 fL Mean Corpuscular Hemoglobin 32.1 pg Mean Corpuscular Hemoglobin Concent 35.4 g/dl Platelet Count 189 K/uL Mean Platelet Volume 8.7 fL Neutrophils (%) (Auto) 54.1 % Lymphocytes (%) (Auto) 29.6 % Monocytes (%) (Auto) 12.0 % Eosinophils (%) (Auto) 3.6 % Basophils (%) (Auto) 0.5 % Neutrophils # (Auto) 2.25 K/uL Lymphocytes # (Auto) 1.23 K/uL Monocytes # (Auto) 0.50 K/uL Eosinophils # (Auto) 0.15 K/uL Basophils # (Auto) 0.02 K/uL RDW Standard Deviation 42.3 fL RDW Coefficient of Variation 12.8 % Immature Granulocyte % (Auto) 0.2 % Immature Granulocyte # (Auto) 0.01 K/uL Sodium Level 141 mmol/L Potassium Level 3.8 mmol/L Chloride Level 106 mmol/L Carbon Dioxide Level 26 mmol/L Anion Gap 9.0 mmol/L Blood Urea Nitrogen 10 mg/dl Creatinine 0.90 mg/dl Est Creatinine Clear Calc Drug Dose 130.1 ml/min Estimated GFR () 120.0 Estimated GFR (Non- 103.5 BUN/Creatinine Ratio 11.0 Random Glucose 108 mg/dl Calcium Level 8.5 mg/dl Magnesium Level 1.8 mg/dl Assessment and Plan 46 y/o M Hx ETOH abuse and intermittent rectal bleeding for several yrs. Presents due to worsening BRBPR The pt states that he has been emotionally stressed recently and his alcohol intake has increased as a result. He drinks approximately 3 40oz 8% Lagers daily. He denies a history of severe withdrawal, DTs or seizures. CT reveals a pathologic retroperitoneal LN which would be consistent with testicular CA. Rectal bleeding - long-term issue so more likely due to chronic inflammatory process, ongoing for at least past 11 years. - Plan for colonoscopy this afternoon. Pt finished go-lytly prep this morning around 6am. Reports bowel movements are watery yellow - Hgb remains stable ~13.7 down from 14.1, pt is also receiving banana bag so can partially be dilutional - pt denies any bloody bowel movements since admission - Will reduce # of blood draws to Q12H - VSS ETOH abuse Previous drug abuse - Monitor for signs of withdrawal - worsening anxiety this morning. Pt reports headache, some tremor upon waking. - Librium 50 mg BID for now- continue at least another 24 hrs with impending withdrawal sx. - PRN Ativan - Will order 1 dose ativan 0.5 mg PO now for anxiety - spoke with Dr. Celis and he is ok with ativan PO dose this morning, also is agreeable to a second dose if necessary. - daily banana bag - Will ask CM to discuss rehab/support groups prior to dc. - Cont MVI, thiamine, B12 - Hepatomegaly and hyposteatosis CT report: Liver: The contrast-enhanced liver is mildly enlarged, measuring over 18 cm in length. The liver demonstrates diffusely distended attenuation consistent with hepatic steatosis. Fatty sparing is seen adjacent to the gallbladder fossa. A linear calcification is noted in the right lobe of the liver adjacent the IVC. There is no intrahepatic biliary ductal dilatation. The hepatic veins and portal veins are patent. Lymph node - will obtain testicular US - ordered this am IMPRESSION: No testicular mass identified. - Urology consulted, appreciate recommendations Anxiety, ? bipolar disorder - Most exacerbated in social setting with large groups or crowds - Has tried multiple SSRIs in the past including: prozac, paxil, zoloft. Also welbutrin and buspar. Pt has never felt mood improvement on these medications and SSRIs have specifically caused sexual dysfunction. - Pt likely has a component of bipolar disorder as he reports low depressed mood with easily irritability/anger in situations that others wouldn't over react toward. Because of his drug history and his report that he also hasn't responded to typical SSRIs, would make me consider bipolar as a more reasonable diagnosis. Pt would likely benefit from a mood stabilizer, however will defer to outpatient provider. Will ask the pt so seek outpatient psychiatric help. He does not wish to see inpatient psych at this time. DVT ppx: - SCDs, OOB CODE STATUS: Full code Disposition: From home, will need neonatal social worker prior to dc for etoh rehab and psychiatric outpatient referral.
--- NOTE | 2016-12-15 13:41 | Urology Consultation ---
History General Date of Service: Dec 15, 2016. Chief Complaint: incidental finding of retroperitoneal lymph node Primary Care Physician: No Doctor, Assigned Pt seen a urologist before?: No History of Present Illness 46 yo male admitted for rectal bleeding. consulted for incidental finding of retroperitoneal lymph node on CT scan. Suspicious for testicular cancer mets per radiology report. The pt has since had a testicular u/s. Normal study without testicular mass. Also noted to have some renal cysts and scarring on CT. The pt reports a ? hx of UTI in the past for which he took doxycyline. Denies any recent dysuria or hematuria. He has not seen a urologist in the past. No other urologic hx. Imaging Imaging: CT Laboratory Last 24 Hours Test 12/15/16 06:10 White Blood Count 4.16 K/uL Red Blood Count 4.08 M/uL Hemoglobin 13.1 g/dL Hematocrit 37.0 % Mean Corpuscular Volume 90.7 fL Mean Corpuscular Hemoglobin 32.1 pg Mean Corpuscular Hemoglobin Concent 35.4 g/dl Platelet Count 189 K/uL Mean Platelet Volume 8.7 fL Neutrophils (%) (Auto) 54.1 % Lymphocytes (%) (Auto) 29.6 % Monocytes (%) (Auto) 12.0 % Eosinophils (%) (Auto) 3.6 % Basophils (%) (Auto) 0.5 % Neutrophils # (Auto) 2.25 K/uL Lymphocytes # (Auto) 1.23 K/uL Monocytes # (Auto) 0.50 K/uL Eosinophils # (Auto) 0.15 K/uL Basophils # (Auto) 0.02 K/uL RDW Standard Deviation 42.3 fL RDW Coefficient of Variation 12.8 % Immature Granulocyte % (Auto) 0.2 % Immature Granulocyte # (Auto) 0.01 K/uL Sodium Level 141 mmol/L Potassium Level 3.8 mmol/L Chloride Level 106 mmol/L Carbon Dioxide Level 26 mmol/L Anion Gap 9.0 mmol/L Blood Urea Nitrogen 10 mg/dl Creatinine 0.90 mg/dl Est Creatinine Clear Calc Drug Dose 130.1 ml/min Estimated GFR () 120.0 Estimated GFR (Non- 103.5 BUN/Creatinine Ratio 11.0 Random Glucose 108 mg/dl Calcium Level 8.5 mg/dl Magnesium Level 1.8 mg/dl Problem List Medical Problems: (1) Acute GI bleeding Status: Acute (2) Alcoholic Status: Acute (3) Arthropathy of shoulder region Status: Acute Past History anxiety, hypertension, other (hx of rectal bleeding, back pain ) Past Surgical History: no surgical history Family History Mother with hx of thyroid cancer. Father with hx of heart disease. 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 ) Allergies Coded Allergies: Codeine (Unverified Allergy, Unknown, SOB, HOT FACE, HIVES, 09/01/16) Erythromycin (Unverified Adverse Reaction, Mild, STOMACH CRAMPS, 09/01/16) Medications Home Medications: Home Meds and Scripts Medications Dose Route/Sig Max Daily Dose Days Date Category Advil (Ibuprofen) 200 Mg Tab 200 Mg PO Q6 PRN 01/06/14 Reported Inpatient Medications: Current Inpatient Medications Medications (Trade) Dose Ordered Sig/[place] Route Start Time Stop Time Status Last Admin Dose Admin Ioversol (Optiray 320) 100 ml UD PRN IV 12/13/16 20:30 12/17/16 20:29 Acetaminophen (Tylenol Tab) 650 mg Q4H PRN PO 12/13/16 22:45 01/12/17 22:44 12/15/16 03:24 650 MG Ondansetron HCl 4 mg 4 mg Q6H PRN IV 12/13/16 22:45 01/12/17 22:44 Pantoprazole Sodium/Syringe (Protonix Inj/ Syringe) 10 ml @ 5 mls/min DAILY@,21 IV 12/14/16 09:00 01/13/17 08:59 12/15/16 08:54 5 MLS/MIN Nicotine 1 patch 1 patch DAILY PRN TD 12/13/16 23:00 01/12/17 22:59 Multivitamins 10 ml/Folic Acid 1 mg/Thiamine HCl 100 mg/Sodium Chloride 1,011.2 ml @ 150 mls/ hr BY DURATION IV 12/14/16 03:00 01/13/17 02:59 12/14/16 12:44 150 MLS/HR Potassium Chloride/Dextrose/ Sod Cl (D5nss + 20meq KCl) 1,000 ml @ 100 mls/hr BY DURATION IV 12/14/16 03:00 01/13/17 02:59 12/15/16 03:20 100 MLS/HR Lorazepam (Ativan Tab) SEE PROTOCOL UD PRN PO 12/14/16 10:00 01/13/17 09:59 12/15/16 09:11 1 MG Chlordiazepoxide (Librium Cap) 50 mg BID PO 12/14/16 13:00 01/13/17 12:59 12/15/16 08:54 50 MG Thiamine HCl (Vitamin B-1 Tab) 50 mg QAM PO 12/15/16 09:00 01/14/17 08:59 12/15/16 08:54 50 MG Multivitamins (Multivitamin Tab) 1 tab DAILY PO 12/15/16 09:00 01/14/17 08:59 12/15/16 08:54 1 TAB Folic Acid (Folvite Tab) 1 mg QAM PO 12/15/16 09:00 01/14/17 08:59 12/15/16 08:54 1 MG Review of Systems Review of Systems Constitutional: No chills, No fever Eyes: No double vision Neurological: No dizzy Endocrine: No excessive thirst Gastrointestinal: No abdominal pain, No nausea, No vomiting Cardiovascular: No chest pain Respiratory: No shortness of breath Skin: No rash Musculoskeletal: No back pain Male : No blood in urine, No painful urination Physical Exam Vital Signs: Vital Signs Past 12 Hours Date Time Temp Pulse Resp B/P Pulse Ox O2 Delivery O2 Flow Rate FiO2 12/15/16 12:10 36.5 69 18 139/96 99 Room Air 12/15/16 09:08 36.3 70 20 147/100 98 Room Air 12/15/16 07:42 36.4 70 18 146/109 98 Room Air 12/15/16 07:40 Room Air 12/15/16 06:29 159/109 12/15/16 06:22 36.2 72 18 175/113 98 Room Air 12/15/16 03:15 36.3 73 16 136/85 97 Room Air Physical Exam: General Appearance: no apparent distress Eyes: bilateral eyes normal inspection ENT: hearing grossly normal Neck: no JVD Respiratory/Chest: no respiratory distress, no accessory muscle use Cardiovascular: no JVD Extremities: normal inspection Neurologic/Psychiatric: alert, normal mood/affect, oriented x 3 Skin: normal color Assessment & Plan Assessment & Plan A/P: Retroperitoneal lymph node, renal scarring, bilateral renal cysts AFVSS. Negative testicular u/s. No evidence for testicular mets as cause for incidental retroperitoneal lymph node finding at this time. Renal scarring likely chronic in nature. ? previous UTI. No need for further imaging at this time. Bilateral renal cysts noted on CT. Consider repeat CT or renal u/s in 6 months to ensure stability. Thanks for the consult. No further recommendations at this time. Recall PRN issues. Will arrange for outpatient f/u in 4-6 weeks.
[2016-12-15] MEDS ORDERED: MIDAZOLAM HCL 1 MG/ML 2ML VIAL ONE (16:40)
[2016-12-15] MEDS ORDERED: PROPOFOL IV EMULSION 10 MG/ML 20 ML VIAL IV ONE (16:57)
[2016-12-15] MEDS ORDERED: LIDOCAINE HCL 2% 2 ML VIAL (20MG/ML) ONE (16:57)
--- NOTE | 2016-12-15 17:05 | GI REPORT ---
Procedure Date: 12/15/2016 4:44 PM Procedure: Colonoscopy Indications: Hematochezia Medicines: Propofol per Anesthesia Complications: No immediate complications. Estimated blood loss: Minimal. Estimated Blood Loss: Estimated blood loss was minimal. Procedure: Pre-Anesthesia Assessment: - Prior to the procedure, a History and Physical was performed, and patient medications and allergies were reviewed. The patient's tolerance of previous anesthesia was also reviewed. The risks and benefits of the procedure and the sedation options and risks were discussed with the patient. All questions were answered, and informed consent was obtained. Prior Anticoagulants: The patient has taken no previous anticoagulant or antiplatelet agents. ASA Grade Assessment: II - A patient with mild systemic disease. After reviewing the risks and benefits, the patient was deemed in satisfactory condition to undergo the procedure. After I obtained informed consent, the scope was passed under direct vision. Throughout the procedure, the patient's blood pressure, pulse, and oxygen saturations were monitored continuously. The Scope was introduced through the anus and advanced to the terminal ileum, with identification of the appendiceal orifice and IC valve. The colonoscopy was performed without difficulty. The patient tolerated the procedure well. The quality of the bowel preparation was good. Findings: The perianal and digital rectal examinations were normal. Pertinent negatives include normal sphincter tone, no palpable rectal lesions and no anal lesion or abnormality was detected. A few small-mouthed diverticula were found in the sigmoid colon. A 1 mm polyp was found at the ileocecal valve. The polyp was sessile. The polyp was removed with a cold biopsy forceps. Resection and retrieval were complete. Estimated blood loss was minimal. Verification of patient identification for the specimen was done by the physician and hospital pharmacy technician using the patient's name and medical record number. The retroflexed view of the distal rectum and anal verge was normal and showed no anal or rectal abnormalities. The exam was otherwise without abnormality. The terminal ileum appeared normal. Impression: - Diverticulosis in the sigmoid colon. - One 1 mm polyp at the ileocecal valve, removed with a cold biopsy forceps. Resected and retrieved. - The distal rectum and anal verge are normal on retroflexion view. - The examination was otherwise normal. - The examined portion of the ileum was normal. Recommendation: - Return patient to [facility] for ongoing care. - Advance diet as tolerated. - Continue present medications. - Await pathology results. - Return to referring physician as previously scheduled. MD Nathan Gutiérrze MD 12/15/2016 5:04:55 PM This report has been signed electronically. Note Initiated On: 12/15/2016 4:44 PM
--- NOTE | 2016-12-15 17:08 | History & Physical Bridge Note ---
H&P Re-Evaluation Bridge Note: I have examined the patient, reviewed the History & Physical and in the interval since the performance of the History & Physical I have noted the following changes of clinical significance: No changes noted
--- NOTE | 2016-12-15 19:19 | Anesthesiology Progress Note ---
Anesthesia Post Op Note Date & Time Dec 15, 2016 at 19:19 Vital Signs Pain Intensity: 0.0 Vital Signs Past 12 Hours Date Time Temp Pulse Resp B/P Pulse Ox O2 Delivery O2 Flow Rate FiO2 12/15/16 18:13 36.4 64 16 147/102 98 Room Air 12/15/16 17:44 62 18 161/115 100 Room Air 12/15/16 17:21 64 18 127/88 96 Room Air 12/15/16 17:04 61 18 127/80 98 Room Air 12/15/16 16:13 36.0 59 20 146/111 99 Room Air 12/15/16 15:37 36.2 135 16 151/100 95 Room Air 12/15/16 15:15 36.2 135 16 151/100 98 Room Air 12/15/16 12:10 36.5 69 18 139/96 99 Room Air 12/15/16 09:08 36.3 70 20 147/100 98 Room Air 12/15/16 07:42 36.4 70 18 146/109 98 Room Air 12/15/16 07:40 Room Air Notes Mental Status: alert / awake / arousable, participated in evaluation Pt Amnestic to Procedure: Yes Nausea / Vomiting: adequately controlled Pain: adequately controlled Airway Patency, RR, SpO2: stable & adequate BP & HR: stable & adequate Hydration State: stable & adequate Anesthetic Complications: no major complications apparent
--- NOTE | 2016-12-15 21:29 | Discharge Summary ---
Discharge Summary Admission Date: Dec 13, 2016 at 22:49 Discharge Date: Dec 15, 2016 Discharge Disposition: Home (AMA) Principal Diagnosis: rectable bleeding Problems/Secondary Diagnoses: Diverticulosis in the sigmoid colon. One 1 mm polyp at the ileocecal valve, removed with a cold biopsy forceps. Resected and retrieved. Procedures: colonoscope Consultations: GI Discharge Exam please see today's note Physical Exam: General Appearance: + pertinent finding (please see today's note) Hospital Course 46 y/o M Hx ETOH abuse and intermittent rectal bleeding for several yrs. Presents due to worsening BRBPR was admitted on 12/13/2016 The pt states that he has been emotionally stressed recently and his alcohol intake has increased as a result. He drinks approximately 3 40oz 8% Lagers daily. He denies a history of severe withdrawal, DTs or seizures. CT reveals a pathologic retroperitoneal LN which would be consistent with testicular CA. Rectal bleeding - long-term issue so more likely due to chronic inflammatory process, ongoing for at least past 11 years. - Plan for colonoscopy this afternoon. Pt finished go-lytly prep this morning around 6am. Reports bowel movements are watery yellow - Hgb remains stable ~13.7 down from 14.1, pt is also receiving banana bag so can partially be dilutional - pt denies any bloody bowel movements since admission -VSS today colonoscope was done, report and recs was in below: - Diverticulosis in the sigmoid colon. - One 1 mm polyp at the ileocecal valve, removed with a cold biopsy forceps. Resected and retrieved. - The distal rectum and anal verge are normal on retroflexion view. - The examination was otherwise normal. - The examined portion of the ileum was normal. Recommendation: - Return patient to hospital [facility] for ongoing care. - Advance diet as tolerated. - Continue present medications. - Await pathology results. - Return to referring physician as previously scheduled. ETOH abuse Previous drug abuse - Monitor for signs of withdrawal - worsening anxiety this morning. Pt reports headache, some tremor upon waking. - Librium 50 mg BID for now- continue at least another 24 hrs with impending withdrawal sx. - PRN Ativan - Will order 1 dose ativan 0.5 mg PO now for anxiety - spoke with Dr. Celis and he is ok with ativan PO dose this morning, also is agreeable to a second dose if necessary. - daily banana bag - Will ask CM to discuss rehab/support groups prior to dc. - Cont MVI, thiamine, B12 - Hepatomegaly and hyposteatosis CT report: Liver: The contrast-enhanced liver is mildly enlarged, measuring over 18 cm in length. The liver demonstrates diffusely distended attenuation consistent with hepatic steatosis. Fatty sparing is seen adjacent to the gallbladder fossa. A linear calcification is noted in the right lobe of the liver adjacent the IVC. There is no intrahepatic biliary ductal dilatation. The hepatic veins and portal veins are patent. Lymph node - will obtain testicular US - ordered this am IMPRESSION: No testicular mass identified. - Urology consulted, appreciate recommendations Anxiety, ? bipolar disorder - Most exacerbated in social setting with large groups or crowds - Has tried multiple SSRIs in the past including: prozac, paxil, zoloft. Also welbutrin and buspar. Pt has never felt mood improvement on these medications and SSRIs have specifically caused sexual dysfunction. - Pt likely has a component of bipolar disorder as he reports low depressed mood with easily irritability/anger in situations that others wouldn't over react toward. Because of his drug history and his report that he also hasn't responded to typical SSRIs, would make me consider bipolar as a more reasonable diagnosis. Pt would likely benefit from a mood stabilizer, however will defer to outpatient provider. Will ask the pt so seek outpatient psychiatric help. He does not wish to see inpatient psych at this time. at 7:02 pm I was paged that pt wanted ama, per RN: Pt states he would like to leave AMA d/t "I just have a lot of stuff to take care of at home." Risks of ama explained to pt. We are sure told him that : against medical advice may cause permanent organ damage or even , patient is awake, alert and orientated x3, I believe patient is competent to make decision by self. patient fully understands and wants to take all risks by self. I also told patient that your medical condition is not ready for your doctor to discharge you to home. We also told him that " you need to go back to emergency room or call your primary care physician if changed mind and wants to be treated. " Pt did sign out AMA. Total Time Spent: Less than 30 minutes This includes examination of the patient, discharge planning, medication reconciliation, and communication with other providers. Discharge Instructions Please refer to the electronic Patient Visit Report (Discharge Instructions) for additional information. Additional Copies To Nathan Ochoa M.D.
--- NOTE | 2016-12-16 01:04 | GASTROINTESTINAL CONSULTATION ---
DATE OF CONSULTATION: 12/14/2016 CHIEF COMPLAINT: Rectal bleeding. HISTORY OF PRESENT ILLNESS: Mr. Birmingham is a 46-year-old white male with a history of alcohol abuse and a history of intermittent rectal bleeding that has been present for nearly 20 years. The patient reports that although he has had intermittent symptoms over the years that seems to be increasing. At times he will fill the toilet with blood. There is a variance to his bowel movement such that sometimes they are loose and sometimes overly firm and there can be some features of discomfort in stool passage along with stranding at times. The patient has no family history of colorectal cancer or inflammatory bowel disease (ulcerative colitis or Crohn's). There has been no weight loss associated with these patient's symptoms and the pattern is intermittent in nature. There is no abdominal pain associated with these features. There was a question on CT scan at this visit of a possible retroperitoneal lymph node that they believe would might reflect a testicular origin; however, the patient underwent a scan ultrasound of testicles and there is no reported abnormality. PAST MEDICAL HISTORY: Includes ethanol use. This has been chronic over the years. FAMILY HISTORY: There is a family history of father with heart disease and mother with thyroid cancer, although no other family history regarding gastrointestinal tract is either chronic disease or cancer. SOCIAL HISTORY: The patient does report a tobacco use. Smokes marijuana but not tobacco use. ALLERGIES: THE PATIENT IS ALLERGIC TO CODEINE WHICH PRODUCES HIVES AND ERYTHROMYCIN WHICH PRODUCES STOMACH CRAMPS. HOME MEDICATIONS: Include only ibuprofen on an as needed for pain. The patient also occasionally uses Percocets. REVIEW OF SYSTEMS: Otherwise noncontributory based on 14-point exam or except for mentioned above. The patient denies odynophagia, dysphagia, hematemesis, coffee-ground emesis, melena. His stools are intermittently loose and sometimes firm, which leads to straining. He denies dysuria or hematuria. The patient is single. His review of systems is otherwise noncontributory. There is no dysuria or hematuria, although there are times when the patient is anxious. PHYSICAL EXAMINATION: VITAL SIGNS: Today, on admission - blood pressure 159/110, temperature is afebrile at 36.5, heart rate 105, respirations 18; he is 99% on room air. His vital signs remained stable during this evaluation. HEENT: Anicteric sclerae. The oral mucosa is moist. NECK: There is no cervical or supraclavicular adenopathy. I do not appreciate thyromegaly. HEART: Normal S1, S2. LUNGS: Clear to auscultation without rales, rhonchi or wheezes. ABDOMEN: Soft, nontender, nondistended. Good bowel sounds. No evidence of shifting dullness or ascites. There is no evidence of abdominal bruits or hepatosplenomegaly. EXTREMITIES: Without clubbing, cyanosis or edema. There are multiple tattoos. LABORATORY STUDIES ON ADMISSION: Showed a white count of 4.5 with a hemoglobin of 14.7, MCV of 98.5 and an INR that is normal at 0.9. His platelet count of 238,000. Urinalysis showed no evidence for an obvious urinary tract infection, nitrite and leukocyte esterase is negative. There were no white blood cells noted and only 0-4 red blood cells. BUN and creatinine are 21 and 1.0. Electrolytes were otherwise normal. Liver function tests on admission showed total bilirubin of 0.3, direct 0.1, AST 44, ALT 75, alkaline phosphatase 64, albumin 3.9. IMAGING DATA: CT imaging suggest a bladder wall that was circumferentially thickened and there was an enlarged retroperitoneal lymph node of indeterminate significance, which could be reactive in nature and a scrotal assessment was recommended. IMPRESSION: The patient with a history of rectal bleeding for many years, this seems to have increased of recent months and perhaps associated with varying down and occasionally some anal discomfort on passage of stools when bleeding occurs. Differential diagnoses for this includes anal fissure, hemorrhoids, possible proctitis although there is no evidence by CT imaging and possibly other sources such as diverticular bleeding. Based on his laboratory studies, there is no evidence for active liver disease other than a mildly elevated AST of 44 and the patient has normal albumin, INR and platelet count which would imply a good synthetic function and a lack of splenomegaly. RECOMMENDATIONS: I made the following recommendations: The patient is somewhat reluctant to undergo colonoscopy as he is concerned about its findings; however, I did speak with him at length regarding this and he is agreeable to proceed. Will plan for colonoscopy tomorrow on with a bowel prep this evening. Further recommendations to follow. Would continue to watch for any evidence of alcohol withdrawal. Source of the lymph node is unclear and may need additional imaging to clarify. However, according to the patient, there are no other constitutional symptoms by way of night sweats, unintentional weight loss, fevers or chills. All questions answered. If you have any questions regarding this assessment, please do not hesitate to contact me. Thank you for allowing me to participate in this patient's care.
== END 2016-12-15 19:10 | disposition left against medical advice (07) | DRG 348 ==
LOC: ENRESERVDT → ENRESERVTM → C.EDB 19:38 → C.MSN 22:49
PROVIDERS: ADMIT Internal Medicine; ATTEND Hospitalist
PROC: 0DBC8ZZ Excision of Ileocecal Valve, Via Natural or Artificial Opening Endoscopic (ICD-10-PCS; principal; 2016-12-15 16:11)
DX: K62.5 Hemorrhage of anus and rectum (principal); F10.239 Alcohol dependence with withdrawal, unspecified; K57.31 Diverticulosis of large intestine without perforation or abscess with bleeding; D12.0 Benign neoplasm of cecum; R59.0 Localized enlarged lymph nodes; N28.1 Cyst of kidney, acquired; N28.89 Other specified disorders of kidney and ureter; K76.0 Fatty (change of) liver, not elsewhere classified; F31.9 Bipolar disorder, unspecified; F41.9 Anxiety disorder, unspecified; F12.90 Cannabis use, unspecified, uncomplicated; F17.210 Nicotine dependence, cigarettes, uncomplicated; Z53.21 Procedure and treatment not carried out due to patient leaving prior to being seen by health care provider; Z79.1 Long term (current) use of non-steroidal anti-inflammatories (NSAID)

== ENCOUNTER 2017-03-14 09:25 | Emergency (ER) | payer OTHER ==
[~2017-03-14] VITALS: Ht 185.4 cm; Wt 121.1 kg
[~2017-03-14 09:25] MED LIST changes: -TRAM-10 PO
[2017-03-14 09:37] VITALS: TEMP 36.5; Ht 185.4 cm; Wt 121.1 kg
[2017-03-14] MEDS ORDERED: SODIUM CHLORIDE 0.9% 1000ML 1,000 ML IV STA (09:54)
--- NOTE | 2017-03-14 09:55 | EMERGENCY ROOM VISIT NOTE ---
History Report prepared by Maged: Carlos Alcantara Under the Supervision of: Dr. Juan Alberto West M.D. First contact with patient: 09:47 Chief Complaint: ILLNESS Stated Complaint: CHILLS, JOINT PAIN, ECT, SICK SINCE MONDAY History of Present Illness The patient is a 47 year old male who presents to the Emergency Room with complaints of a persistent illness that started a week ago. He says that his started having a similar illness around the same time. He complains of body aches, popping joints, a mild cough, and fatigue. He thinks that he may have Lyme Disease. He has been eating and drinking fine. The patient did not get his flu shot. He denies any abdominal pain, diarrhea, or urinary symptoms. The patient does not smoke. He has been taking Motrin and Tylenol, and he has been taking 300 mg Omnicef for 2 days. Source of History: patient Onset: A week ago Position: other (global - illness) Timing: other (persistent) Associated Symptoms: + cough, + fatigue, No abdominal pain, No diarrhea, No urinary symptoms Note: Associated symptoms: Popping joints, body aches. Review of Systems See HPI for pertinent positives & negatives. A total of 10 systems reviewed and were otherwise negative. Past Medical & Surgical Medical Problems: (1) Anxiety State Nos (2) GI bleed (3) Hypertension Nos (4) Lumbago (5) Tobacco Use Disorder Family History No pertinent family history Social History Smoking Status: Never Smoker Alcohol Use: occasionally Drug Use: marijuana Marital Status: single Housing Status: lives with family Occupation Status: employed Current/Historical Medications Scheduled Cefdinir (Omnicef), 300 MG PO BID Allergies Coded Allergies: Codeine (Unverified Allergy, Unknown, SOB, HOT FACE, HIVES, 03/14/17) Erythromycin (Unverified Adverse Reaction, Mild, STOMACH CRAMPS, 03/14/17) Physical Exam Vital Signs Date Time Temp Pulse Resp B/P Pulse Ox O2 Delivery O2 Flow Rate FiO2 03/14/17 11:42 72 18 138/96 95 03/14/17 10:35 58 18 144/99 100 Room Air 03/14/17 09:37 36.5 62 18 170/129 98 Room Air Physical Exam GENERAL: Patient is mildly anxious appearing in minimal distress. HEENT: No acute trauma, normocephalic atraumatic, mucous membranes dry, no nasal congestion, no scleral icterus. NECK: No stridor, no adenopathy, no meningismus, trachea is midline. LUNGS: No dyspnea. Clear to auscultation and equal bilaterally. No wheeze, no rhonchi. HEART: Regular rate and rhythm. No murmurs, rubs, gallops appreciated. ABDOMEN: Soft, nontender, bowel sounds positive, no masses appreciated, no peritonitis. BACK: No midline tenderness, no CVA tenderness EXTREMITIES: Normal motion all extremities, no cyanosis, no edema. NEUROLOGIC: Alert and oriented, no acute motor or sensory deficits, no focal weakness, cranial nerves grossly intact. SKIN: No rash, no jaundice, no diaphoresis. Medical Decision & Procedures Laboratory Results 03/14/17 09:50 Red Blood Count 4.50, Mean Corpuscular Volume 91.1, Mean Corpuscular Hemoglobin 32.2, Mean Corpuscular Hemoglobin Concent 35.4, Mean Platelet Volume 8.8, Neutrophils (%) (Auto) 50.0, Lymphocytes (%) (Auto) 38.7, Monocytes (%) (Auto) 8.8, Eosinophils (%) (Auto) 1.9, Basophils (%) (Auto) 0.6, Neutrophils # (Auto) 1.81, Lymphocytes # (Auto) 1.40, Monocytes # (Auto) 0.32, Eosinophils # (Auto) 0.07, Basophils # (Auto) 0.02 03/14/17 09:50 Test 03/14/17 09:45 03/14/17 09:50 Urine Color YELLOW Urine Appearance CLEAR (CLEAR) Urine pH 5.0 (4.5-7.5) Urine Specific [place] 1.021 (1.000-1.030) Urine Protein NEG (NEG) Urine Glucose (UA) NEG (NEG) Urine Ketones NEG (NEG) Urine Occult Blood NEG (NEG) Urine Nitrite NEG (NEG) Urine Bilirubin NEG (NEG) Urine Urobilinogen NEG (NEG) Urine Leukocyte Esterase NEG (NEG) Urine WBC (Auto) 0 /hpf (0-5) Urine RBC (Auto) 0-4 /hpf (0-4) Urine Hyaline Casts (Auto) 0 /lpf (0-5) Urine Epithelial Cells (Auto) 0-5 /lpf (0-5) Urine Bacteria (Auto) NEG (NEG) White Blood Count 3.62 K/uL (4.8-10.8) Red Blood Count 4.50 M/uL (4.7-6.1) Hemoglobin 14.5 g/dL (14.0-18.0) Hematocrit 41.0 % (42-52) Mean Corpuscular Volume 91.1 fL (80-100) Mean Corpuscular Hemoglobin 32.2 pg (25-34) Mean Corpuscular Hemoglobin Concent 35.4 g/dl (32-36) Platelet Count 278 K/uL (130-400) Mean Platelet Volume 8.8 fL (7.4-10.4) Neutrophils (%) (Auto) 50.0 % Lymphocytes (%) (Auto) 38.7 % Monocytes (%) (Auto) 8.8 % Eosinophils (%) (Auto) 1.9 % Basophils (%) (Auto) 0.6 % Neutrophils # (Auto) 1.81 K/uL (1.4-6.5) Lymphocytes # (Auto) 1.40 K/uL (1.2-3.4) Monocytes # (Auto) 0.32 K/uL (0.11-0.59) Eosinophils # (Auto) 0.07 K/uL (0-0.5) Basophils # (Auto) 0.02 K/uL (0-0.2) RDW Standard Deviation 42.0 fL (36.4-46.3) RDW Coefficient of Variation 12.5 % (11.5-14.5) Immature Granulocyte % (Auto) 0.0 % Immature Granulocyte # (Auto) 0.00 K/uL (0.00-0.02) Anion Gap 6.0 mmol/L (3-11) Est Creatinine Clear Calc Drug Dose 136.7 ml/min Estimated GFR () 114.5 Estimated GFR (Non- 98.8 BUN/Creatinine Ratio 21.6 (10-20) Calcium Level 8.8 mg/dl (8.5-10.1) Total Creatine Kinase 263 U/L (39-308) Lyme Disease IgG Antibody NEG (NEG) Lyme Disease IgM Antibody NEG (NEG) Laboratory results as reviewed by me. Medications Administered Medications (Trade) Dose Ordered Sig/[place] Route Start Time Stop Time Status Last Admin Dose Admin Sodium Chloride (Nss 1000ml) 1,000 ml @ 999 mls/hr Q1H1M STAT IV 03/14/17 09:54 03/14/17 10:54 DC 03/14/17 09:54 999 MLS/HR ED Course 0949: The patient was evaluated in room A4B. A complete history and physical exam was performed. 0954: Ordered NSS 1000 ml @ 999 mls/hr IV. 1121: Reevaluated the patient and he is resting comfortably. Discussed results and discharge instructions: He verbalized understanding and agreement. The patient is ready for discharge. Medical Decision Differential: Sepsis, Infectious (UTI/Pneumonia/Meningitis/etc), Metabolic/ Electrolyte Abnormality, Cardiac, Hepatic, Endocrine, Toxicologic, Neurologic, amongst other pathologies entertained. 47 yr old male arrives with vague viral illness like symptoms similar to flu. Significant other with similar symptoms. Labs unremarkable as is lyme negative which he was concerned about. No evidence of meningitis nor sepsis. Was mildly dehydrated by exam. Looks well and comfortable with going home. Impression Primary Impression: Fatigue Additional Impressions: Acute viral syndrome Dehydration Scribe Attestation The scribe's documentation has been prepared under my direction and personally reviewed by me in its entirety. I confirm that the note above accurately reflects all work, treatment, procedures, and medical decision making performed by me. Departure Information Dispostion Home / Self-Care Referrals Primary Care Provider Patient Instructions My [facility] Additional Instructions You have been examined and treated today on an emergency basis only. This is not a substitute for, or an effort to provide, complete comprehensive medical care. It is impossible to recognize and treat all injuries or illnesses in a single emergency department visit. It is therefore important that you follow up closely with your Primary Physician or [facility]. Call as soon as possible for an appointment so you can review all labs, imaging and other testing that you had. Return to Emergency Department, call 911 or seek immediate medical attention if you feel your symptoms are worsening. Problem Qualifiers
[2017-03-14] MEDS ORDERED: CEFD300C2 PO (10:09)
[2017-03-14 10:14] LABS: URINE APPEARANCE CLEAR (CLEAR); URINE BILIRUBIN NEG (NEG); URINE COLOR YELLOW; URINE EPITHELIAL CELL AUTO 0-5 /lpf (0-5); URINE NITRITE NEG (NEG); URINE SPECIFIC GRAVITY 1.021 (1.000-1.030); UROBILINOGEN NEG (NEG); ZZUR CULT IF INDIC CLEAN CATCH NO
[2017-03-14 10:15] LABS: MANUAL MICROSCOPIC REQUIRED? NO; REVIEW REQ? NO
[2017-03-14 10:17] LABS: BASO % 0.6 %; BASO ABS # 0.02 K/uL (0-0.2); COMPLETE YES; EOS % 1.9 %; LYMPH % 38.7 %; MEAN CELL VOLUME 91.1 fL (80-100); MEAN CORPUSCULAR HEMOGLOBIN 32.2 pg (25-34); MEAN CORPUSCULAR HGB CONC 35.4 g/dl (32-36); MEAN PLATELET VOLUME 8.8 fL (7.4-10.4); MONO % 8.8 %; PLATELET COUNT 278 K/uL (130-400); WHITE BLOOD COUNT 3.62 K/uL (4.8-10.8)
[2017-03-14 10:42] LABS: BUN/CREATININE RATIO 21.6 (10-20); CALCIUM 8.8 mg/dl (8.5-10.1); CREATININE 0.93 mg/dl (0.60-1.40); POTASSIUM 3.8 mmol/L (3.5-5.1)
[2017-03-14 11:04] LABS: LYME DISEASE AB IGG NEG (NEG)
[2017-03-14 11:07] LABS: LYME DISEASE AB IGM NEG (NEG)
[2017-03-14 11:42] VITALS: BP 138/96; PULSE 72; O2SAT 95
== END 2017-03-14 11:43 | disposition home or self-care (01) ==
LOC: C.EDB 09:27 → C.EDA 11:43
DX: R53.83 Other fatigue (principal); B34.9 Viral infection, unspecified; E86.0 Dehydration; F41.9 Anxiety disorder, unspecified; I10 Essential (primary) hypertension

== ENCOUNTER 2018-04-19 09:13 | Emergency (ER) | payer SELFPAY ==
[~2018-04-19] VITALS: Ht 185.4 cm; Wt 97.0 kg
[~2018-04-19 09:13] MED LIST changes: +CEFD300C2 PO; -IBUP-103 PO
[2018-04-19 09:16] VITALS: TEMP 37.1; Ht 185.4 cm; Wt 97.0 kg
[2018-04-19] MEDS ORDERED: KETOROLAC TROMETHAMINE 30 MG/ML VIAL IV STA (09:47)
[2018-04-19] MEDS ORDERED: SODIUM CHLORIDE 0.9% 1000ML 1,000 ML IV STA (09:47)
[2018-04-19] MEDS ORDERED: OPTIRAY 320 IV PRN (10:00)
--- NOTE | 2018-04-19 10:11 | EMERGENCY ROOM VISIT NOTE ---
History First contact with patient: 09:20 Chief Complaint: FEVER Stated Complaint: FACE SWOLLEN FEVER, CHILLS, HEAD PAIN History of Present Illness The patient is a 48 year old male who presents to the Emergency Room with complaints of left-sided facial swelling, subjective fever, and headache. The patient states he noticed the swelling, headaches, and severe pain since Monday. Over the past 2 days, he feels that the symptoms are worsening, and last night he reports severe chills and subjective fever. 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 He does not recall any known exposure to mumps. He denies any associated symptoms including upper respiratory infection symptoms, sore throat, drainage, dental pain, earache, redness, chest pain, dyspnea, or other concerning symptoms. He rates the pain 7/10 and describes it as throbbing and pounding. The patient does believe he is fully vaccinated, including MMR vaccination. Review of Systems A complete 10 point review of systems was reviewed with the patient with pertinent positives and negatives as per history of present illness. All else were negative. Past Medical/Surgical History Medical Problems: (1) Anxiety State Nos (2) GI bleed (3) Hypertension Nos (4) Lumbago (5) Tobacco Use Disorder Family History No pertinent family history Social History Smoking Status: Current Every Day Smoker Alcohol Use: occasionally Drug Use: marijuana Marital Status: single Housing Status: lives with family Occupation Status: employed Current/Historical Medications Scheduled Amoxicillin & Pot Clavulanate (Augmentin 875-125 mg), 1 TAB PO BID Physical Exam Vital Signs Date Time Temp Pulse Resp B/P (MAP) Pulse Ox O2 Delivery O2 Flow Rate FiO2 04/19/18 12:20 80 16 148/103 98 04/19/18 11:21 76 16 153/106 98 Room Air 04/19/18 09:16 37.1 91 16 150/89 97 Room Air Physical Exam VITALS: Vitals are noted on the nurse's note and reviewed by myself. Vital signs stable. GENERAL: This is a 48-year-old white male, in no acute distress, nondiaphoretic , well-developed well-nourished. SKIN: There is left-sided facial swelling pre-auricularly, radiating toward the mandible and toward the cervical lymph nodes. There is no erythema or drainage. There is no palpable abscess. There is significant tenderness on palpation. The skin was otherwise without rashes, erythema, edema, or bruising. There is no tenting of the skin. Capillary reflex less than 2 seconds. HEAD: Normocephalic atraumatic. EARS: External auditory canals clear, tympanic membranes pearly boo without erythema or effusion bilaterally. EYES: Pupils equal round and reactive to light and accommodation. Conjunctivae without injection, sclerae without icterus. Extraocular movements intact. NOSE: Patent, turbinates without inflammation or discharge. No sinus tenderness. MOUTH: Mucous membranes moist. Tonsils are not enlarged. Pharynx without erythema or exudate. Uvula midline. Airway patent. Tongue does not deviate. NECK: Supple without nuchal rigidity. No lymphadenopathy. No thyromegaly. Cervical spine is nontender. No JVD. HEART: Regular rate and rhythm without murmurs gallops or rubs. LUNGS: Clear to auscultation bilaterally without wheezes, rales or rhonchi. No dullness to percussion. No retractions or accessory muscle use. MUSCULOSKELETAL: No muscle atrophy, erythema, or edema noted. Full range of motion without joint tenderness in all extremities. No tenderness to palpation. Normal gait. Strength 5/5 throughout. NEURO: Patient was alert and oriented to person place and time. Normal sensation to light and sharp touch. Deep tendon reflexes 2+ throughout. No focal neurological deficits. Medical Decision & Procedures ER Provider Diagnostic Interpretation: SOFT TISSUE NECK WITH HISTORY: 48 years-old Male left parotiditis, subjective fever acute left-sided facial pain and swelling COMPARISON: None available TECHNIQUE: Multiple axial CT images of the soft tissues of the neck were obtained following the intravenous administration of 93 mL Optiray 320 IV contrast. A dose lowering technique was used consistent with the principals of ALARA. FINDINGS: There is asymmetric enlargement with heterogeneous enhancement and interstitial edema about the left parotid gland with mild adjacent subcutaneous edema which tracks along the left platysma musculature. No drainable fluid collection, ductal dilation or obstructing sialolith. Mildly prominent nonenlarged bilateral level 1 lymph nodes measuring up to 6 mm in short axis are likely reactive. The right parotid and bilateral submandibular and sublingual glands appear unremarkable. Thyroid is homogeneous. Nasopharynx, oral pharynx and hypopharynx are patent and within normal limits. The vallecula and piriform sinuses are unremarkable and appear to be within normal limits. The glottis and subglottic airway is within normal limits. Lung apices are clear. Orbits are symmetric and within normal limits. No acute intracranial abnormal amount identified. Bones appear intact. Mild multilevel facet arthrosis and uncovertebral spurring without significant intervertebral disc space narrowing. Posterior disc osteophyte complex formation noted at C5-C6. Mastoid air cells, middle ear cavities and paranasal sinuses are clear. IMPRESSION: Findings compatible with acute left-sided parotiditis with reactive subcutaneous edema about the left face tracking along the platysma musculature. No drainable fluid collection, ductal dilation or obstructing sialolith. The above report was generated using voice recognition software. It may contain grammatical, syntax or spelling errors. Electronically signed by: Evan Chavarria M.D. 04/19/2018 11:29 AM Dictated Date/Time: 04/19/2018 11:24 AM Laboratory Results 04/19/18 10:05 Red Blood Count 4.23, Mean Corpuscular Volume 86.5, Mean Corpuscular Hemoglobin 29.8, Mean Corpuscular Hemoglobin Concent 34.4, Mean Platelet Volume 8.3, Neutrophils (%) (Auto) 51.2, Lymphocytes (%) (Auto) 33.6, Monocytes (%) (Auto) 14.2, Eosinophils (%) (Auto) 0.3, Basophils (%) (Auto) 0.7, Neutrophils # (Auto ) 1.51, Lymphocytes # (Auto) 0.99, Monocytes # (Auto) 0.42, Eosinophils # (Auto ) 0.01, Basophils # (Auto) 0.02 04/19/18 10:05 Test 04/19/18 10:05 White Blood Count 2.95 K/uL (4.8-10.8) Red Blood Count 4.23 M/uL (4.7-6.1) Hemoglobin 12.6 g/dL (14.0-18.0) Hematocrit 36.6 % (42-52) Mean Corpuscular Volume 86.5 fL (80-100) Mean Corpuscular Hemoglobin 29.8 pg (25-34) Mean Corpuscular Hemoglobin Concent 34.4 g/dl (32-36) Platelet Count 216 K/uL (130-400) Mean Platelet Volume 8.3 fL (7.4-10.4) Neutrophils (%) (Auto) 51.2 % Lymphocytes (%) (Auto) 33.6 % Monocytes (%) (Auto) 14.2 % Eosinophils (%) (Auto) 0.3 % Basophils (%) (Auto) 0.7 % Neutrophils # (Auto) 1.51 K/uL (1.4-6.5) Lymphocytes # (Auto) 0.99 K/uL (1.2-3.4) Monocytes # (Auto) 0.42 K/uL (0.11-0.59) Eosinophils # (Auto) 0.01 K/uL (0-0.5) Basophils # (Auto) 0.02 K/uL (0-0.2) RDW Standard Deviation 46.4 fL (36.4-46.3) RDW Coefficient of Variation 14.6 % (11.5-14.5) Immature Granulocyte % (Auto) 0.0 % Immature Granulocyte # (Auto) 0.00 K/uL (0.00-0.02) Anion Gap 8.0 mmol/L (3-11) Est Creatinine Clear Calc Drug Dose 104.8 ml/min Estimated GFR () 94.9 Estimated GFR (Non- 81.9 BUN/Creatinine Ratio 13.4 (10-20) Lactic Acid Level 1.7 mmol/L (0.4-2.0) Calcium Level 8.6 mg/dl (8.5-10.1) Total Bilirubin 0.5 mg/dl (0.2-1) Aspartate Amino Transf (AST/SGOT) 41 U/L (15-37) Alanine Aminotransferase (ALT/SGPT) 40 U/L (12-78) Alkaline Phosphatase 64 U/L (45-117) C-Reactive Protein 0.75 mg/dl (0-0.29) Total Protein 7.5 gm/dl (6.4-8.2) Albumin 3.4 gm/dl (3.4-5.0) Globulin 4.1 gm/dl (2.5-4.0) Albumin/Globulin Ratio 0.8 (0.9-2) Monoscreen NEG (NEG) Medications Administered Medications (Trade) Dose Ordered Sig/[place] Route Start Time Stop Time Status Last Admin Dose Admin Ketorolac Tromethamine (Toradol Inj) 30 mg NOW STAT IV 04/19/18 09:47 04/19/18 09:54 DC 04/19/18 10:02 30 MG Sodium Chloride 1,000 ml @ 999 mls/hr Q1H1M STAT IV 04/19/18 09:47 04/19/18 10:47 DC 04/19/18 10:01 999 MLS/HR Acetaminophen (Ofirmev Iv) 1,000 mg STK-MED ONCE IV 04/19/18 11:27 04/19/18 11:28 DC 04/19/18 11:33 1,000 MG Amoxicillin/ Clavulanate Potassium (Augmentin Tab) 875 mg ONE STAT PO 04/19/18 12:09 04/19/18 12:10 DC 04/19/18 12:17 875 MG ED Course The patient was seen and evaluated as above. IV access obtained, labs drawn. Patient was given 30 mg Toradol and 1 L normal saline solution IV. CT scan performed and reviewed by myself and radiologist as above. The patient reports worsening headache. He was given IV Tylenol. I discussed findings with patient at bedside. I discussed the case with Dr. Mendez. He recommends treatment with Augmentin. The patient was given his first dose of Augmentin. Discharge instructions reviewed. The patient was discharged home in good condition. Medical Decision This is a 48-year-old male patient presents the emergency department today complaining of several day history of facial swelling. On examination he appears to have parotid gland swelling. There is no obvious drainage or cause for the swelling. There is no erythema. The patient does report a mild subjective fever last night. He reports a severe headache and tenderness to palpation. Labs showed a white blood cell count of 2.95. There is mild anemia which is consistent with the patient's previous labs. No thrombocytopenia. Patient's electrolytes were without abnormality. Renal function and hepatic function were normal. C-reactive protein slightly elevated at 0.75. Lactic acid was normal. Blood cultures and Mumps testing are pending. Rush screen was negative. CT scan performed and reviewed by myself and radiologist as above. There is sporadically and swelling, but no obvious stone or abscess. I suspect a virus as the etiology of the patient's symptoms and recommended supportive treatment. I discussed the case with Dr. Mendez, who recommended treatment with Augmentin in case of bacterial infection. The patient was encouraged to stay home from work and get plenty of rest until Monday. All questions answered to the patient's satisfaction. Etiologies such as viral syndrome, parotitis, mumps, mononucleosis, otitis, pharyngitis, pneumonia, urinary tract infection, sepsis, bacteremia, meningitis , as well as others were entertained. The chart was completed utilizing [employer] Speech voice recognition software. Grammatical errors, random word insertions, pronoun errors, and incomplete sentences are an occasional consequence of this system due to software limitations, ambient noise, and hardware issues. Any formal questions or concerns about the content, text, or information contained within the body of this dictation should be directly addressed to the provider for clarification. Medication Reconcilliation Current Medication List: was personally reviewed by me Blood Pressure Screening Patient's blood pressure: Normal blood pressure Impression Primary Impression: Parotiditis Departure Information Dispostion Home / Self-Care Condition GOOD Prescriptions Amoxicillin & Pot Clavulanate (Augmentin 875-125 mg) 1 Tab Tab 1 TAB PO BID for 10 Days, #19 TAB Prov: Yuni Macias PA-C 04/19/18 Referrals No Doctor, Assigned (PCP) Patient Instructions My [facility] Additional Instructions You were seen in the ED today for facial swelling and chills with headache. As discussed, I suspect parotiditis as the cause of your symptoms, possible related to Mumps or other viral infection. Despite the likely viral etiology of illness, you will be started on Augmentin in case of bacterial infection. Amoxicillin Clavulanate (Augmentin) 875mg: Take one pill twice daily for 10 days for your infection. All antibiotics can cause diarrhea. If this occurs and you feel worse or it does not resolve in 1-2 days follow up with your doctor or return to the Emergency Department as this could be signs of serious underlying problems. Any medication can cause an allergic reaction, stop the pills immediately and return to the ER for rash, hives, breathing difficulties, or swelling. Ibuprofen(Motrin, Advil) may be used for fever or pain. Use 600mg every six hours as needed. Take with food. Avoid using more than 2400mg in a 24 hour period. Do not use 2400mg per day for more than three consecutive days without physician direction. Prolonged inappropriate use can lead to stomach upset or ulcers. (AND/OR) Acetaminophen(Tylenol) may be used for fever or pain. Use 1000mg every six hours as needed. Avoid using more than 3000mg in a 24 hour period. I recommend no work until Monday at the earliest. Gargle with salt water frequently to keep the mouth clean. Please avoid close contact with other people. Follow-up with your primary care provider within 1 week for reevaluation of your symptoms. Return immediately to the emergency department for worsening pain, swelling, redness, drainage, fever, body aches, or other concerning symptoms.
[2018-04-19 10:21] LABS: BASO % 0.7 %; BASO ABS # 0.02 K/uL (0-0.2); EOS % 0.3 %; EOS ABS # 0.01 K/uL (0-0.5); HEMATOCRIT 36.6 % (42-52); HEMOGLOBIN 12.6 g/dL (14.0-18.0); LYMPH % 33.6 %; LYMPH ABS # 0.99 K/uL (1.2-3.4); MEAN CELL VOLUME 86.5 fL (80-100); MEAN CORPUSCULAR HEMOGLOBIN 29.8 pg (25-34); MEAN CORPUSCULAR HGB CONC 34.4 g/dl (32-36); MEAN PLATELET VOLUME 8.3 fL (7.4-10.4); MONO % 14.2 %; MONO ABS # 0.42 K/uL (0.11-0.59); NEUT % 51.2 %; NEUT ABS # 1.51 K/uL (1.4-6.5); PLATELET COUNT 216 K/uL (130-400); RED CELL DISTRIBUTION WIDTH CV 14.6 % (11.5-14.5); RED CELL DISTRIBUTION WIDTH SD 46.4 fL (36.4-46.3); WHITE BLOOD COUNT 2.95 K/uL (4.8-10.8)
[2018-04-19 10:43] LABS: ALBUMIN 3.4 gm/dl (3.4-5.0); CALCIUM 8.6 mg/dl (8.5-10.1); CREATININE 1.08 mg/dl (0.60-1.40); POTASSIUM 3.5 mmol/L (3.5-5.1); TOTAL PROTEIN 7.5 gm/dl (6.4-8.2)
[2018-04-19] MEDS ORDERED: ACETAMINOPHEN IV 1,000 MG in EMPTY BAG 0 ML IV STA (11:19)
[2018-04-19] MEDS ORDERED: ACETAMINOPHEN 1000 MG/100 ML IV IV ONE (11:27)
--- NOTE | 2018-04-19 11:30 | DIAGNOSTIC IMAGING REPORT ---
SOFT TISSUE NECK WITH HISTORY: 48 years-old Male left parotiditis, subjective fever acute left-sided facial pain and swelling COMPARISON: None available TECHNIQUE: Multiple axial CT images of the soft tissues of the neck were obtained following the intravenous administration of 93 mL Optiray 320 IV contrast. A dose lowering technique was used consistent with the principals of JANA. FINDINGS: There is asymmetric enlargement with heterogeneous enhancement and interstitial edema about the left parotid gland with mild adjacent subcutaneous edema which tracks along the left platysma musculature. No drainable fluid collection, ductal dilation or obstructing sialolith. Mildly prominent nonenlarged bilateral level 1 lymph nodes measuring up to 6 mm in short axis are likely reactive. The right parotid and bilateral submandibular and sublingual glands appear unremarkable. Thyroid is homogeneous. Nasopharynx, oral pharynx and hypopharynx are patent and within normal limits. The vallecula and piriform sinuses are unremarkable and appear to be within normal limits. The glottis and subglottic airway is within normal limits. Lung apices are clear. Orbits are symmetric and within normal limits. No acute intracranial abnormal amount identified. Bones appear intact. Mild multilevel facet arthrosis and uncovertebral spurring without significant intervertebral disc space narrowing. Posterior disc osteophyte complex formation noted at C5-C6. Mastoid air cells, middle ear cavities and paranasal sinuses are clear. IMPRESSION: Findings compatible with acute left-sided parotiditis with reactive subcutaneous edema about the left face tracking along the platysma musculature. No drainable fluid collection, ductal dilation or obstructing sialolith. The above report was generated using voice recognition software. It may contain grammatical, syntax or spelling errors. Electronically signed by: Evan Chavarria M.D. 04/19/2018 11:29 AM Dictated Date/Time: 04/19/2018 11:24 AM
[2018-04-19] MEDS ORDERED: AMOXICILLIN/CLAVULANATE TAB 875 MG TAB PO STA (12:09)
[2018-04-19] MEDS ORDERED: AMOX875T PO (12:12)
[2018-04-19 12:20] VITALS: BP 148/103; PULSE 80; O2SAT 98
== END 2018-04-19 12:25 | disposition home or self-care (01) ==
LOC: C.EDB 09:14
DX: K11.20 Sialoadenitis, unspecified (principal); F41.9 Anxiety disorder, unspecified; I10 Essential (primary) hypertension; F17.210 Nicotine dependence, cigarettes, uncomplicated; F12.90 Cannabis use, unspecified, uncomplicated

== ENCOUNTER 2018-04-21 10:24 | Emergency (ER) | payer SELFPAY ==
[~2018-04-21] VITALS: Ht 185.4 cm; Wt 97.0 kg
[~2018-04-21 10:24] MED LIST changes: +AMOX875T PO; -CEFD300C2 PO
[2018-04-21 10:35] VITALS: TEMP 36.8; Ht 185.4 cm; Wt 97.0 kg
[2018-04-21] MEDS ORDERED: DEXAMETHASONE INJ 8 MG in SYRINGE 0 ML IV STA (10:55)
[2018-04-21] MEDS ORDERED: KETOROLAC TROMETHAMINE 30 MG/ML VIAL IV STA (10:55)
[2018-04-21] MEDS ORDERED: SODIUM CHLORIDE 0.9% 1000ML 1,000 ML IV STA (10:55)
--- NOTE | 2018-04-21 11:02 | EMERGENCY ROOM VISIT NOTE ---
History Report prepared by Maged: Anjelica Win Under the Supervision of: Dr. Brendon Hobson M.D. 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 He states he came to the ED 2 days ago for a fever, chills, and diaphoresis. Then yesterday when he woke up the right side of his face was hurting. He states last night he woke up and his bed was drenched in sweat and his neck felt more swollen. He denies any recent dental pain. He is a current smoker and occasionally marijuana. No shortness of breath or difficulty swallowing. Patient states he was prescribed Augmentin 2 days ago and has been taking the Augmentin without difficulty. 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 Negative recent dental pain Review of Systems See HPI for pertinent positives and negatives. A total of ten systems were reviewed and were otherwise negative. 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 drug use for greater than 5 years) Marital Status: single Housing Status: lives with family Occupation Status: employed Current/Historical Medications Scheduled Amoxicillin & Pot Clavulanate (Augmentin 875-125 mg), 1 TAB PO BID Scheduled PRN Acetaminophen (Acetaminophen), 1,000 MG PO UD PRN for Fever Allergies Coded Allergies: Codeine (Unverified Allergy, Unknown, SOB, HOT FACE, HIVES, 04/21/18) Erythromycin (Unverified Adverse Reaction, Mild, STOMACH CRAMPS, 04/21/18) Physical Exam Vital Signs Date Time Temp Pulse Resp B/P (MAP) Pulse Ox O2 Delivery O2 Flow Rate FiO2 04/21/18 13:57 61 18 133/94 97 Room Air 04/21/18 11:41 62 18 134/91 95 Room Air 04/21/18 10:35 36.8 96 20 146/99 98 Room Air Physical Exam Physical Exam GENERAL: He is oriented to person, place, and time. He appears well-developed and well-nourished. He does not appear distressed. ____ HENT: Exam performed. Head: Normocephalic and atraumatic. Right Ear: External ear normal. No mastoid tenderness. Left Ear: External ear normal. No mastoid tenderness. Mouth/Throat: The oropharynx is clear and moist. No trismus in the jaw. No dental abscesses or uvula swelling. No oropharyngeal exudate or tonsillar abscesses. No sublingual edema, no tongue elevation. EYES: Conjunctivae and EOM are normal. Pupils are equal, round, and reactive to light. Right eye exhibits no discharge. Left eye exhibits no discharge. No scleral icterus. ____ NECK: Normal range of motion. Neck supple. No JVD present. No spinous process tenderness present. No carotid bruit present. No rigidity. No tracheal deviation and normal range of motion present. No Brudzinski's sign and no Kernig 's sign noted. ____ CV: Normal rate, regular rhythm, normal heart sounds and intact distal pulses. There is no peripheral edema. Palpable radial pulses bue. ____ PULM/CHEST: Effort normal and breath sounds normal. No respiratory distress. No stridor. He has no wheezes. He has no rales. Chest Wall: He exhibits no tenderness. ____ ABD: The abdomen is soft. Bowel sounds are normal. He has no distension. No mass is present. There is no tenderness. There is no rebound, no guarding, no Veronica's sign and no tenderness at McBurney's point. Rovsig negative MUSC/SKEL: Normal range of motion. There is no peripheral edema, tenderness or deformity. LYMPH: Cervical lymphadenopathy. NEURO: He is alert and oriented to person, place, and time. He has normal strength. No cranial nerve deficit or sensory deficit. Coordination and gait normal. GCS eye subscore is 4. GCS verbal subscore is 5. GCS motor subscore is 6. Cerebellar tests wnl. ____ SKIN: Skin is warm and dry. He is not diaphoretic. ____ PSYCH: He has a normal mood and affect. His behavior is normal. Judgment and thought content normal. ____ Medical Decision & Procedures Laboratory Results 04/21/18 11:05 Red Blood Count 4.34, Mean Corpuscular Volume 88.7, Mean Corpuscular Hemoglobin 30.4, Mean Corpuscular Hemoglobin Concent 34.3, Mean Platelet Volume 8.7 04/21/18 11:05 Test 04/21/18 11:05 White Blood Count 2.61 K/uL (4.8-10.8) Red Blood Count 4.34 M/uL (4.7-6.1) Hemoglobin 13.2 g/dL (14.0-18.0) Hematocrit 38.5 % (42-52) Mean Corpuscular Volume 88.7 fL (80-100) Mean Corpuscular Hemoglobin 30.4 pg (25-34) Mean Corpuscular Hemoglobin Concent 34.3 g/dl (32-36) Platelet Count 234 K/uL (130-400) Mean Platelet Volume 8.7 fL (7.4-10.4) RDW Standard Deviation 47.6 fL (36.4-46.3) RDW Coefficient of Variation 14.5 % (11.5-14.5) Neutrophils % (Manual) 17.0 % Lymphocytes % (Manual) 51.8 % Variant Lymphocytes % (manual) 11.6 % Monocytes % (Manual) 19.6 % Neutrophils # (Manual) 0.44 K/uL (1.4-6.5) Total Absolute Neutrophils 0.44 K/uL (1.4-6.5) Lymphocytes # (Manual) 1.35 K/uL (1.2-3.4) Absolute Variant Lymphocytes 0.30 K/uL Total Absolute Lymphocytes 1.65 K/uL (1.2-3.4) Monocytes # (Manual) 0.51 K/uL (0.11-0.59) Red Blood Cell Morphology Unremarkable Anion Gap 8.0 mmol/L (3-11) Est Creatinine Clear Calc Drug Dose 107.8 ml/min Estimated GFR () 98.2 Estimated GFR (Non- 84.7 BUN/Creatinine Ratio 9.0 (10-20) Calcium Level 8.7 mg/dl (8.5-10.1) Laboratory results reviewed by me Medications Administered Medications (Trade) Dose Ordered Sig/[place] Route Start Time Stop Time Status Last Admin Dose Admin Sodium Chloride 1,000 ml @ 999 mls/hr Q1H1M STAT IV 04/21/18 10:55 04/21/18 11:55 DC 04/21/18 11:15 999 MLS/HR Ketorolac Tromethamine (Toradol Inj) 15 mg NOW STAT IV 04/21/18 10:55 04/21/18 10:57 DC 04/21/18 11:16 15 MG Dexamethasone Sodium Phosphate 8 mg/Syringe 2 ml @ 1 mls/min ONE STAT IV 04/21/18 10:55 04/21/18 10:57 DC 04/21/18 10:55 1 MLS/MIN ED Course 1048: EMR reviewed The patient was seen on April 19. He had a tissue soft tissue of the neck which showed a left sided parotiditis. Subcutaneous edema. No drainable fluid collection, ductal dilatation, or obstructing sialolith. On April 19 patient was afebrile, his white blood cell count was 2.95, hemoglobin 12.6, platelets 216. Electrolytes and lactic acid on April 19 were within normal limits. 1050: The patient was evaluated in room C10. A complete history and physical exam was performed. 1055: Ordered Dexamethasone Sodium Phosphate 8 mg/Syringe 2 ml @ 1 mls/min IV, Toradol Inj 15 mg IV, Sodium Chloride 1000 ml @ 999 mls/hr IV 1112: Ordered Dexamethasone Sodium Phosphate 10 mg IV 1247: Vital signs stable. Patient is afebrile, his oxygen saturation has been stable on room air the entire time. No trismus. No difficulty swallowing. No respiratory distress. Labs today showed a normal renal profile and a white blood cell count of 2.61, hemoglobin stable, platelets stable. Given the decrease in white blood cell count, there was concern that the patient could have some sort of malignancy. The patient states he has family history of thyroid cancer. CT scan from 2 days ago showed normal thyroid. I spoke with Dr. Pearson, [facility]. I read him the lab results as well as the CT results. He does not think the patient needs to be imaged as there is a low possibility of malignancy. He does not recommend CAT scans or steroids. He will see the patient in his office as needed. Patient was encouraged to keep taking the Augmentin that was prescribed him 2 days ago. 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 Pearson. No narcotic analgesia or benzodiazepines were given to the patient on this visit as patient has a history of illicit substance abuse.DISCHARGE - Plan of care discussed with patient and questions answered. The patient was given both verbal and printed discharge instructions. The patient verbalized understanding and ability to comply. The patient is to seek outpatient follow up as noted in the discharge instructions. The patient verbalized understanding and ability to comply. The patient is discharged in stable condition. The patient was instructed to return for worsening symptoms. Medical Decision 1048: EMR reviewed The patient was seen on April 19. He had a tissue soft tissue of the neck which showed a left sided parotiditis. Subcutaneous edema. No drainable fluid collection, ductal dilatation, or obstructing sialolith. On April 19 patient was afebrile, his white blood cell count was 2.95, hemoglobin 12.6, platelets 216. Electrolytes and lactic acid on April 19 were within normal limits. 1050: The patient was evaluated in room C10. A complete history and physical exam was performed. 1055: Ordered Dexamethasone Sodium Phosphate 8 mg/Syringe 2 ml @ 1 mls/min IV, Toradol Inj 15 mg IV, Sodium Chloride 1000 ml @ 999 mls/hr IV 1112: Ordered Dexamethasone Sodium Phosphate 10 mg IV 1247: Vital signs stable. Patient is afebrile, his oxygen saturation has been stable on room air the entire time. No trismus. No difficulty swallowing. No respiratory distress. Labs today showed a normal renal profile and a white blood cell count of 2.61, hemoglobin stable, platelets stable. Given the decrease in white blood cell count, there was concern that the patient could have some sort of malignancy. The patient states he has family history of thyroid cancer. CT scan from 2 days ago showed normal thyroid. I spoke with Dr. Pearson, [facility]. I read him the lab results as well as the CT results. He does not think the patient needs to be imaged as there is a low possibility of malignancy. He does not recommend CAT scans or steroids. He will see the patient in his office as needed. Patient was encouraged to keep taking the Augmentin that was prescribed him 2 days ago. 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 Pearson. No narcotic analgesia or benzodiazepines were given to the patient on this visit as patient has a history of illicit substance abuse.DISCHARGE - Plan of care discussed with patient and questions answered. The patient was given both verbal and printed discharge instructions. The patient verbalized understanding and ability to comply. The patient is to seek outpatient follow up as noted in the discharge instructions. The patient verbalized understanding and ability to comply. The patient is discharged in stable condition. The patient was instructed to return for worsening symptoms. Medication Reconcilliation Current Medication List: was personally reviewed by me Blood Pressure Screening Patient's blood pressure: Elevated blood pressure Blood pressure disposition: Elevated BP felt to be situational Consults Time Called: 1200 Consulting Physician: Dr. Pearson, [facility] Returned Call: [phone] I read him the lab results as well as the CT results. He does not think the patient needs to be imaged as there is a low possibility of malignancy. He does not recommend CAT scans or steroids. He will see the patient in his office if needed. Impression Primary Impression: Neck pain Scribe Attestation The scribe's documentation has been prepared under my direction and personally reviewed by me in its entirety. I confirm that the note above accurately reflects all work, treatment, procedures, and medical decision making performed by me. The chart was completed utilizing [employer] Speech voice recognition software. Grammatical errors, random word insertions, pronoun errors, and incomplete sentences are an occasional consequence of this system due to software limitations, ambient noise, and hardware issues. Any formal questions or concerns about the content, text, or information contained within the body of this dictation should be directly addressed to the physician for clarification. Departure Information Dispostion Home / Self-Care Referrals No Doctor, Assigned (PCP) Forms HOME CARE DOCUMENTATION FORM, IMPORTANT VISIT INFORMATION Patient Instructions My [facility] Additional Instructions Return to the emergency department if you develop fever measured with a thermometer orally greater than 100.4, difficulty swallowing, difficulty breathing
[2018-04-21] MEDS ORDERED: DEXAMETHASONE **PF** INJ 10 MG/ML VIAL ONE (11:12)
[2018-04-21 11:45] LABS: HEMATOCRIT 38.5 % (42-52); HEMOGLOBIN 13.2 g/dL (14.0-18.0); MEAN CELL VOLUME 88.7 fL (80-100); MEAN CORPUSCULAR HEMOGLOBIN 30.4 pg (25-34); MEAN CORPUSCULAR HGB CONC 34.3 g/dl (32-36); MEAN PLATELET VOLUME 8.7 fL (7.4-10.4); PLATELET COUNT 234 K/uL (130-400); RED CELL DISTRIBUTION WIDTH CV 14.5 % (11.5-14.5); RED CELL DISTRIBUTION WIDTH SD 47.6 fL (36.4-46.3); WHITE BLOOD COUNT 2.61 K/uL (4.8-10.8)
[2018-04-21] MEDS ORDERED: ACET500T58 PO (11:45)
[2018-04-21 11:47] LABS: CALCIUM 8.7 mg/dl (8.5-10.1); CREATININE 1.05 mg/dl (0.60-1.40); POTASSIUM 4.1 mmol/L (3.5-5.1)
[2018-04-21 13:57] VITALS: BP 133/94; PULSE 61; O2SAT 97
== END 2018-04-21 14:10 | disposition home or self-care (01) ==
LOC: C.EDB 10:28 → C.EDC 14:10
DX: M54.2 Cervicalgia (principal); F41.9 Anxiety disorder, unspecified; I10 Essential (primary) hypertension; F17.210 Nicotine dependence, cigarettes, uncomplicated; F12.90 Cannabis use, unspecified, uncomplicated; Z88.5 Allergy status to narcotic agent; Z88.8 Allergy status to other drugs, medicaments and biological substances

== ENCOUNTER 2018-07-05 16:44 | Emergency (ER) | payer SELFPAY ==
[~2018-07-05] VITALS: Ht 182.9 cm; Wt 95.6 kg
[~2018-07-05 16:44] MED LIST changes: +ACET500T58 PO; -AMOX875T PO
[2018-07-05 17:02] VITALS: TEMP 36.7; Ht 182.9 cm; Wt 95.6 kg
[2018-07-05] MEDS ORDERED: LIDOCAINE 1% BUFFERED INJ 20 ML VIAL INFIL STA (17:24)
[2018-07-05] MEDS ORDERED: IBUP-1451 PO (17:45)
--- NOTE | 2018-07-05 17:51 | EMERGENCY ROOM VISIT NOTE ---
ED Visit Note First contact with patient: 17:12 CHIEF COMPLAINT: Left hand laceration HISTORY OF PRESENT ILLNESS: This 48-year-old male patient presents to the emergency department, ambulatory, approximately 30 minutes after cutting the left hand between the thumb and index finger on a utility knife. The patient states he was using a dull blade to cut a zip tie. He accidentally stabbed himself when the blade slipped. The bleeding has stopped. Denies weakness or numbness of the hand or fingers. The patient rates the pain as sharp and 4/10. The patient denies any other injuries. The patient's Tetanus shot is up to date. REVIEW OF SYSTEMS: A 6 system review of systems was completed with positives and pertinent negatives listed in the HPI. ALLERGIES: Codeine, erythromycin MEDICATIONS: Ibuprofen PMH: None SOCIAL HISTORY: Patient lives locally with family. He does report occasional marijuana, alcohol, and cigarette use. PHYSICAL EXAM: Vital Signs: Reviewed Nurse's notes, vital signs stable. GENERAL : This is a 48-year-old white male, in no acute distress, well-developed, well- nourished. SKIN: There is a 2 cm long laceration on the anterior aspect, in the web space between the 1st and 2nd digits of the right hand. The edges gape apart with traction. There is no foreign material in the wound and it looks clean. There is no active bleeding. No deep structures such as tendons, bones, or significant blood vessels are seen in the base of the wound. Normal strength and movement of the fingers and wrist. Capillary refill less than 2 seconds. Normal sensation to light and sharp touch. EMERGENCY DEPARTMENT COURSE: I examined the patient. Verbal consent was obtained to perform the procedure. Using sterile technique the wound was cleansed with Betadine. The area was sterilely draped. 2 ml of 1% buffered lidocaine was used to anesthetize the laceration on the hand. Once the patient was anesthetized, the wound was copiously irrigated under pressure with sterile saline. The wound was explored and was as described above. The laceration was repaired using 5 simple interrupted 5-0 nylon sutures with the wound edges being well approximated. The patient tolerated the procedure well. Hemostasis was achieved. The area was cleaned with sterile saline and dressed with bacitracin ointment and bandage. The patient was discharged home in good condition. I attest that I have personally reviewed the patient's current medication list. Patient was found to have normal blood pressure on screening and does not require follow-up. Differential diagnosis includes laceration, contusion, fracture, sprain/strain, tendon or ligament injury, neurovascular compromise, foreign body, assault, and others DIAGNOSIS: Left hand laceration The chart was completed utilizing [employer] Speech voice recognition software. Grammatical errors, random word insertions, pronoun errors, and incomplete sentences are an occasional consequence of this system due to software limitations, ambient noise, and hardware issues. Any formal questions or concerns about the content, text, or information contained within the body of this dictation should be directly addressed to the provider for clarification. Current/Historical Medications Scheduled PRN Ibuprofen Tab (Motrin), 800 MG PO DIRECTED PRN for Pain Allergies Coded Allergies: Codeine (Verified Allergy, Unknown, SOB, HOT FACE, HIVES, 07/05/18) Erythromycin (Verified Adverse Reaction, Mild, STOMACH CRAMPS, 07/05/18) Vital Signs Date Time Temp Pulse Resp B/P (MAP) Pulse Ox O2 Delivery O2 Flow Rate FiO2 07/05/18 18:06 86 18 170/88 100 07/05/18 17:02 36.7 93 18 177/111 98 Room Air Departure Information Impression Primary Impression: Laceration of left hand Dispostion Home / Self-Care Condition GOOD Referrals No Doctor, Assigned (PCP) Patient Instructions ED Laceration Hand, My [facility] Additional Instructions You have received 5 sutures on your left hand. These sutures are NOT dissolvable and WILL need to be removed by a health care provider in 12-14 days. You can return to the Emergency Department or contact your Primary Care Provider to have the sutures removed. Proper wound care is essential for adequate wound healing and infection prevention. You can shower and clean the wound with soap and water. Do not scour over the wound, pat dry with a towel. Do not submerse the wound (i.e. bathe or dish wash) until the sutures have been removed. You can use an antibiotic ointment with a dressing over the wound for the next 3-4 days. After this time you may leave the wound dry and open to the air. If crust develops over the wound you can use a Q-tip to apply a 1:1 peroxide:water solution to clean the wound. Look for signs of infection of the wound including: increased pain, swelling, foul discharge, streaking, or increased temperature. If any of these are noticed you should return to the Emergency Department for further assessment and treatment. As with any laceration you may have received nerve damage to the surrounding tissues. This damage may or may not be permanent. You should keep the area covered with sunscreen for the first 6 months to 1 year when at risk for exposure to help minimize scarring. For pain control, you can use the following [id number] medicines (if >12 yo): Ibuprofen(Motrin, Advil) may be used for fever or pain. Use 600mg every six hours as needed. Take with food. Avoid using more than 2400mg in a 24 hour period. Do not use 2400mg per day for more than three consecutive days without physician direction. Prolonged inappropriate use can lead to stomach upset or ulcers. (AND/OR) Acetaminophen(Tylenol) may be used for fever or pain. Use 1000mg every six hours as needed. Avoid using more than 3000mg in a 24 hour period. Return to the emergency department if your symptoms worsen despite treatment course outlined above. Problem Qualifiers Primary Impression: Laceration of left hand Encounter type: initial encounter Foreign body presence: without foreign body Qualified Codes: S61.412A - Laceration without foreign body of left hand , initial encounter
[2018-07-05 18:06] VITALS: BP 170/88; PULSE 86; O2SAT 100
== END 2018-07-05 18:07 | disposition home or self-care (01) ==
LOC: C.EDB 16:45 → C.EDD 18:07
DX: S61.412A Laceration without foreign body of left hand, initial encounter (principal); W26.0XXA Contact with knife, initial encounter; Z88.5 Allergy status to narcotic agent; Z88.1 Allergy status to other antibiotic agents; F12.90 Cannabis use, unspecified, uncomplicated; F17.200 Nicotine dependence, unspecified, uncomplicated